=== PATIENT | male | born 1945 | race Caucasian/White ===

== ENCOUNTER 2017-10-05 15:22 | Inpatient (IN) | payer MEDICARE ==
[~2017-10-05] VITALS: Ht 175.3 cm; Wt 67.7 kg
[2017-10-05 15:24] VITALS: BP 125/87; PULSE 64; RESP 16; TEMP 98.3; O2SAT 96
[2017-10-05 16:37] LABS: AUTOMATED NEUTROPHIL # 5.2 TH/MM3 (1.8-7.7); BASOPHIL # 0.1 TH/MM3 (0-0.2); BASOPHIL % 1.1 % (0.0-2.0); EOSINOPHIL # 0.2 TH/MM3 (0-0.4); EOSINOPHIL % 3.2 % (0.0-4.0); HEMOGLOBIN 12.6 GM/DL (13.0-17.0); LYMPH % 18.8 % (9.0-44.0); LYMPHOCYTE # 1.4 TH/MM3 (1.0-4.8); MEAN CELL VOLUME 95.2 FL (80.0-100.0); MEAN CORPUSCULAR HEMOGLOBIN 31.6 PG (27.0-34.0); MEAN CORPUSCULAR HGB CONC 33.2 % (32.0-36.0); MEAN PLATELET VOLUME 7.9 FL (7.0-11.0); MONO % 5.4 % (0.0-8.0); MONOCYTE # 0.4 TH/MM3 (0-0.9); NEUT % 71.5 % (16.0-70.0); PLATELET COUNT 268 TH/MM3 (150-450); RED BLOOD COUNT 3.99 MIL/MM3 (4.50-5.90); RED CELL DISTRIBUTION WIDTH 15.6 % (11.6-17.2); WHITE BLOOD COUNT 7.3 TH/MM3 (4.0-11.0)
[2017-10-05 16:51] LABS: BICARBONATE 27.4 MEQ/L (21.0-32.0); CALCIUM 8.7 MG/DL (8.5-10.1); CREATININE 1.05 MG/DL (0.60-1.30); INTERNATIONAL NORMALIZED RATIO 1.3 RATIO; PROTHROMBIN TIME - PATIENT 13.4 SEC (9.8-11.6)
[2017-10-05 16:55] LABS: TROPONIN I 0.14 NG/ML (0.02-0.05)
[2017-10-05 16:57] VITALS: BP 193/102; PULSE 105; RESP 16; O2SAT 100
[2017-10-05] MEDS ORDERED: GUAI400T32 PO (17:13)
[2017-10-05] MEDS ORDERED: ZANT150T2 PO (17:13)
[2017-10-05] MEDS ORDERED: PERC5TAB12 PO (17:13)
[2017-10-05] MEDS ORDERED: SPIRCAP INH (17:13)
[2017-10-05] MEDS ORDERED: LEVO175T2 PO (17:13)
[2017-10-05] MEDS ORDERED: CLON.5 PO (17:13)
[2017-10-05] MEDS ORDERED: SYMB160A INH (17:13)
[2017-10-05] MEDS ORDERED: VENTAER INH (17:13)
[2017-10-05] MEDS ORDERED: MORP1TAB26 PO (17:13)
[2017-10-05] MEDS ORDERED: HEPARIN SODIUM - IV 10,000 UNITS/10 ML VIAL IV ONE (17:15)
[2017-10-05] MEDS ORDERED: POTASSIUM CHLORIDE 20 MEQ CONTROLLED RELEASE TAB PO ONE (17:15)
[2017-10-05] MEDS ORDERED: niCARdipine INJ 25 MG in SODIUM CHLOR 0.9% 250 ML INJ 240 ML IV PRN (17:15)
[2017-10-05] MEDS ORDERED: HEPARIN-D5W 25,000 U/250 ML 250 ML IV PRN (17:15)
[2017-10-05] MEDS ORDERED: methylPREDNISolone SOD SUCC 125 MG/2 ML VIAL IV PUSH ONE (17:15)
[2017-10-05] MEDS: RESP: ALBUTEROL 2.5 MG/3 ML NEB (SCH) INH ×2 (17:18→17:29)
--- NOTE | 2017-10-05 17:20 | RADRPT ---
EXAM DATE/TIME: 10/05/2017 16:32 [place] COMPARISON: No previous studies available for comparison. INDICATIONS : Vertigo, rapid heart rate, denies chest pain MEDICAL HISTORY : None. SURGICAL HISTORY : None. ENCOUNTER: Initial ACUITY: 1 day PAIN SCORE: 0/10 LOCATION: Bilateral chest FINDINGS: Mild diffuse interstitial prominence. No focal pleural or parenchymal opacities. Cardiac silhouette i s in the upper limits of normal in size. Bony thorax is intact. CONCLUSION: 1. Mild diffuse interstitial prominence of unknown chronicity given lack of prior exams. 2. Otherwise, no acute abnormality. Daniel Holliday MD on October 05, 2017 at 17:16 Board Certified Radiologist. This report was verified electronically.
--- NOTE | 2017-10-05 17:22 | PD ---
HPI Chief Complaint: Cardiac Complaint Time Seen by Provider: 16:37 Travel History International Travel<30 days: No Contact w/Intl Traveler<30days: No Traveled to known affect area: No History of Present Illness HPI 72-year-old male came to the emergency room with history of dizziness and balance issue since September 14. Patient denies any lightheadedness or syncopal episode. Denies falling. He [facility] and when they did an EKG they discovered that he was new onset A. fib and sent him to the emergency room. Patient has history of COPD and upon asking for shortness of breath he said that he usually has shortness of breath and cannot distinguish. Patient is not on any oxygen at home. His daughter who is here with him set that he was down for almost a month with influenza. Patient denies any chest pain history. There was blood tests ordered and sent from triage prior to patient coming into the emergency room. No history of fever or chills. Patient continues to be a smoker. Patient was tachycardic in triage. [facility] Past Medical History Narrative Medical List of his past medical, surgical, social and family history reviewed from the nursing note. Arthritis: Yes COPD: Yes Diminished Hearing: Yes (both ears ) Reproductive: Yes (BPH) Respiratory: Yes Thyroid Disease: Yes (hypo) Past Surgical History Tonsillectomy: Yes Social History Alcohol Use: No Tobacco Use: Yes (1/2 pack a day ) Substance Use: No Allergies-Medications (Allergen,Severity, Reaction): Coded Allergies: No Known Allergies (Unverified , 10/05/17) Comments No known drug allergies. Reported Meds & Prescriptions Reported Meds & Active Scripts Active Reported Percocet (Oxycodone-Acetaminophen) 5-325 mg Tab 2 Tab PO Q6H PRN Morphine ER (Morphine Sulfate) 60 Mg Tab 60 Mg PO BID Klonopin (Clonazepam) 0.5 Mg Tab 0.5 Mg PO TID Spiriva Handihaler (Tiotropium Inh) 18 Mcg Cap 18 Mcg INH DAILY 1 capsule = 18 mcg Zantac (Ranitidine HCl) 150 Mg Tab 150 Mg PO DAILY Levothyroxine (Levothyroxine Sodium) 175 Mcg Tab 175 Mcg PO DAILY Guaifenesin 400 Mg Tab 400 Mg PO BID PRN Symbicort Inh (Budesonide/Formoterol Fumarate) 160-4.5 Mcg/Act Aero 2 Puff INH Q12HR Ventolin Hfa 18 GM Inh (Albuterol Sulfate) 90 Mcg/Act Aer 2 Puff INH Q6H PRN Narrative Medication List of his home medications reviewed from the nursing note. Review of Systems Except as stated in HPI: all other systems reviewed are Neg Neurologic: Positive: Dizziness Physical Exam Narrative GENERAL: Awake, alert, moderate disc SKIN: Focused skin assessment warm/dry. Pale HEAD: Atraumatic. Normocephalic. EYES: Pupils equal and round. No scleral icterus. No injection or drainage. ENT: No nasal bleeding or discharge. Mucous membranes pink and moist. NECK: Trachea midline. No JVD. CARDIOVASCULAR: Irregularly irregular rhythm. No murmur appreciated. RESPIRATORY: No accessory muscle use. Decreased air entry with end expiratory wheeze GASTROINTESTINAL: Abdomen soft, non-tender, nondistended. Hepatic and splenic margins not palpable. MUSCULOSKELETAL: No obvious deformities. No clubbing. No cyanosis. No edema. NEUROLOGICAL: Awake and alert. No obvious cranial nerve deficits. Motor grossly within normal limits. Normal speech. PSYCHIATRIC: Appropriate mood and affect; insight and judgment normal. Data Data Last Documented VS Orders Orders Electrocardiogram (10/05/17 15:45) Basic Metabolic Panel (Bmp) (10/05/17 15:45) B-Type Natriuretic Peptide (10/05/17 15:45) Ckmb (Isoenzyme) Profile (10/05/17 15:45) Complete Blood Count With Diff (10/05/17 15:45) Magnesium (Mg) (10/05/17 15:45) Prothrombin Time / Inr (Pt) (10/05/17 15:45) Act Partial Throm Time (Ptt) (10/05/17 15:45) Troponin I (10/05/17 15:45) Chest, Pa & Lat (10/05/17 15:45) Potassium Chloride (Kcl) (10/05/17 17:15) Nicardipine Inj (Cardene Inj) (10/05/17 17:15) Heparin Inj (Heparin Inj) (10/05/17 17:15) Heparin-D5w 25,000 U/250 Ml (Heparin-D5w (10/05/17 17:15) Act Partial Throm Time (Ptt) (10/05/17 17:01) Cbc No Diff, Includes Plts (10/05/17 17:01) Methylprednisolone So Succ Inj (Solumedr (10/05/17 17:15) Albuterol Neb (Albuterol Neb) (10/05/17 17:15) Ecg Monitoring (10/05/17 17:22) Blood Pressure (10/05/17 17:22) Iv Access Insert/Monitor (10/05/17 17:22) Oximetry (10/05/17 17:22) Vital Signs (10/05/17 17:22) Diltiazem Inj (Cardizem Inj) (10/05/17 17:30) Sodium Chloride 0.9% Flush (Ns Flush) (10/05/17 17:30) Diltiazem Inj (Cardizem Inj) (10/05/17 17:45) Admit Order (Ed Use Only) (10/05/17 17:22) Labs Laboratory Tests Test 10/05/17 16:02 White Blood Count 7.3 TH/MM3 Red Blood Count 3.99 MIL/MM3 Hemoglobin 12.6 GM/DL Hematocrit 38.0 % Mean Corpuscular Volume 95.2 FL Mean Corpuscular Hemoglobin 31.6 PG Mean Corpuscular Hemoglobin Concent 33.2 % Red Cell Distribution Width 15.6 % Platelet Count 268 TH/MM3 Mean Platelet Volume 7.9 FL Neutrophils (%) (Auto) 71.5 % Lymphocytes (%) (Auto) 18.8 % Monocytes (%) (Auto) 5.4 % Eosinophils (%) (Auto) 3.2 % Basophils (%) (Auto) 1.1 % Neutrophils # (Auto) 5.2 TH/MM3 Lymphocytes # (Auto) 1.4 TH/MM3 Monocytes # (Auto) 0.4 TH/MM3 Eosinophils # (Auto) 0.2 TH/MM3 Basophils # (Auto) 0.1 TH/MM3 CBC Comment DIFF FINAL Differential Comment Prothrombin Time 13.4 SEC Prothromb Time International Ratio 1.3 RATIO Activated Partial Thromboplast Time 22.6 SEC Blood Urea Nitrogen 10 MG/DL Creatinine 1.05 MG/DL Random Glucose 84 MG/DL Calcium Level 8.7 MG/DL Magnesium Level 2.0 MG/DL Sodium Level 140 MEQ/L Potassium Level 3.1 MEQ/L Chloride Level 106 MEQ/L Carbon Dioxide Level 27.4 MEQ/L Anion Gap 7 MEQ/L Estimat Glomerular Filtration Rate 69 ML/MIN Total Creatine Kinase 91 U/L Troponin I 0.14 NG/ML B-Type Natriuretic Peptide 886 PG/ML MDM Medical Decision Making Medical Screen Exam Complete: Yes Emergency Medical Condition: Yes Medical Record Reviewed: Yes Interpretation(s) Twelve-lead EKG was reviewed by me. Atrial fibrillation, normal axis, RVR. Heart rate of 117 bpm. Differential Diagnosis CHF, COPD exacerbation, new onset A. fib with RVR Narrative Course 5:18 PM the test results are back and patient has slightly elevated troponin. Potassium was low and I have ordered for replacement. I started him on Cardizem bolus and drip and heparin bolus and drip. Patient will also be getting albuterol nebulizer. Awaiting for the hospitalist to call back for admission. I discussed this with the patient and he understands. Critical Care Narrative Aggregate critical care time was 30 minutes. Time to perform other separately billable procedures was not included in the critical care time. My time did not include minutes spent treating any other patients simultaneously or on activities that did not directly contribute to the patient's treatment. The services I provided to this patient were to treat and/or prevent clinically significant deterioration that could result in: A. fib with RVR, elevated troponin, Cardizem drip, heparin drip I provided critical care services requiring my management, as noted below: Chart data review, documentation time, medication orders and management, vital sign assessments/reviewing monitor data, ordering and reviewing lab tests, ordering and interpreting/reviewing x-rays and diagnostic studies, care of the patient and discussion of the patient with the admitting physicians. Procedures EKG Prior to Arrival: No Diagnosis Primary Impression: New onset a-fib Additional Impressions: Atrial fibrillation with RVR Elevated troponin I level Hypokalemia Admitting Information Admitting Physician Requests: Admit Scripts Ipratropium HFA 12.9 GM Inh (Atrovent HFA 12.9 GM Inh) 17 Mcg/Actuation Aer 2 PUFF INH Q6HR Y for SHORTNESS OF BREATH, #1 INHALER 0 Refills Prov: Antonio Covington MD 10/07/17 Apixaban (Eliquis) 5 Mg Tab 5 MG PO BID for Blood Clot Prevention for 30 Days, #60 TAB Prov: Antonio Covington MD 10/07/17 Diltiazem CD 24 HR (Diltiazem CD 24 HR) 240 Mg Caper 240 MG PO DAILY for heart for 30 Days, #30 CAP Prov: Antonio Covington MD 10/07/17 Seth Bear MD Oct 05, 2017 17:21
[2017-10-05] MEDS ORDERED: SODIUM CHLORIDE 0.9% FLUSH 10 ML FLUSH IV FLUSH PRN ×2 (17:30→18:00)
[2017-10-05] MEDS ORDERED: DILTIAZEM HCL 50 MG/10 ML VIAL IV PUSH ONE (17:45)
[2017-10-05] MEDS ORDERED: RESP: IPRATROPIUM 0.5 MG/2.5 ML NEB NEB PRN (18:00)
[2017-10-05] MEDS ORDERED: NALOXONE HCL 0.4 MG/ML AMP IV PUSH PRN (18:00)
[2017-10-05 18:53] VITALS: BP 160/89
[2017-10-05] MEDS ORDERED: DILTIAZEM HCL 25 MG/5 ML VIAL IV PUSH ONE (19:00)
[2017-10-05] MEDS: DILTIAZEM INJ 125 MG in SODIUM CHLORIDE 0.9% INJ 100 ML IV PRN (19:25)
[2017-10-05 20:00] VITALS: BP 126/73; PULSE 99; RESP 20; TEMP 98.5; O2SAT 98
[2017-10-05] MEDS ORDERED: CHLORHEXIDINE GLUCONATE 2 % 1 PACK (2 CLOTHS)(extra cloths) TOPICAL PRN (20:00)
[2017-10-05] MEDS: SODIUM CHLORIDE 0.9% FLUSH 10 ML FLUSH IV FLUSH SCH (21:00)
[2017-10-05 21:02] LABS: HEMATOCRIT 37.2 % (39.0-51.0); HEMOGLOBIN 12.3 GM/DL (13.0-17.0); MEAN CELL VOLUME 94.8 FL (80.0-100.0); MEAN CORPUSCULAR HEMOGLOBIN 31.4 PG (27.0-34.0); MEAN CORPUSCULAR HGB CONC 33.1 % (32.0-36.0); MEAN PLATELET VOLUME 8.3 FL (7.0-11.0); PLATELET COUNT 266 TH/MM3 (150-450); RED BLOOD COUNT 3.92 MIL/MM3 (4.50-5.90); RED CELL DISTRIBUTION WIDTH 15.6 % (11.6-17.2); WHITE BLOOD COUNT 8.9 TH/MM3 (4.0-11.0)
--- NOTE | 2017-10-05 21:42 | HHI.HP ---
HPI Service [facility] Hospitalists Primary Care Physician [facility] Admission Diagnosis Onset A. fib, A. fib with RVR, elevated troponin Diagnoses: Travel History International Travel<30 Days: No Contact w/Intl Traveler <30 Da: No Traveled to Known Affected Are: No History of Present Illness 72-year-old male with a past medical history significant for chronic left lower extremity pain secondary to trauma, COPD and hypothyroidism presents to the emergency department complaining of balance problems and lightheadedness since . The patient denies any chest pain or palpitations. Denies shortness of breath. Denies fever/chills. He went to the ID for evaluation where an EKG was performed and he was sent to the [place] emergency department. He was found to be in atrial fibrillation with RVR. The patient has no previous history of A. fib. Review of Systems Except as stated in HPI: all other systems reviewed are Neg Past Family Social History Past Medical History COPD Hypothyroidism Chronic left lower extremity pain secondary to trauma Past Surgical History Multiple surgeries left leg Reported Medications Reported Meds & Active Scripts Active Reported Percocet (Oxycodone-Acetaminophen) 5-325 mg Tab 2 Tab PO Q6H PRN Morphine ER (Morphine Sulfate) 60 Mg Tab 60 Mg PO BID Klonopin (Clonazepam) 0.5 Mg Tab 0.5 Mg PO TID Spiriva Handihaler (Tiotropium Inh) 18 Mcg Cap 18 Mcg INH DAILY 1 capsule = 18 mcg Zantac (Ranitidine HCl) 150 Mg Tab 150 Mg PO DAILY Levothyroxine (Levothyroxine Sodium) 175 Mcg Tab 175 Mcg PO DAILY Guaifenesin 400 Mg Tab 400 Mg PO BID PRN Symbicort Inh (Budesonide/Formoterol Fumarate) 160-4.5 Mcg/Act Aero 2 Puff INH Q12HR Ventolin Hfa 18 GM Inh (Albuterol Sulfate) 90 Mcg/Act Aer 2 Puff INH Q6H PRN Allergies: Coded Allergies: No Known Allergies (Unverified , 10/05/17) Family History Negative for CAD/DM Social History Smokes approximately one half a pack per day. Denies alcohol and illicit drugs. Physical Exam Vital Signs Vital Signs Date Time Temp Pulse Resp B/P (MAP) Pulse Ox O2 Delivery O2 Flow Rate FiO2 10/05/17 19:25 156 144/0 10/05/17 18:53 130 15 160/89 (112) 10/05/17 16:57 105 16 193/102 (132) 100 Nasal Cannula 2.00 10/05/17 16:53 119 23 100 2.00 10/05/17 15:24 98.3 64 16 125/87 (100) 96 Room Air Physical Exam GENERAL: male lying in bed SKIN: No rashes, ecchymoses or lesions. Cool and dry. HEAD: Atraumatic. Normocephalic. No temporal or scalp tenderness. EYES: Pupils equal round and reactive. Extraocular motions intact. No scleral icterus. No injection or drainage. ENT: Nose without bleeding, purulent drainage or septal hematoma. Throat without erythema, tonsillar hypertrophy or exudate. Uvula midline. Airway patent. NECK: Trachea midline. No JVD or lymphadenopathy. Supple, nontender, no meningeal signs. CARDIOVASCULAR: Tachycardic with irregularly irregular rhythm. No murmurs/rubs/ gallops RESPIRATORY: Bilateral expiratory wheezes GASTROINTESTINAL: Abdomen soft, non-tender, nondistended. No hepato-splenomegaly , or palpable masses. No guarding. MUSCULOSKELETAL: Extremities without clubbing, cyanosis, or edema. No joint tenderness, effusion, or edema noted. No calf tenderness. NEUROLOGICAL: Awake and alert. Cranial nerves II through XII intact. Motor and sensory grossly within normal limits. Normal speech. Laboratory Laboratory Tests Test 10/05/17 16:02 10/05/17 20:30 White Blood Count 7.3 8.9 Red Blood Count 3.99 3.92 Hemoglobin 12.6 12.3 Hematocrit 38.0 37.2 Mean Corpuscular Volume 95.2 94.8 Mean Corpuscular Hemoglobin 31.6 31.4 Mean Corpuscular Hemoglobin Concent 33.2 33.1 Red Cell Distribution Width 15.6 15.6 Platelet Count 268 266 Mean Platelet Volume 7.9 8.3 Neutrophils (%) (Auto) 71.5 Lymphocytes (%) (Auto) 18.8 Monocytes (%) (Auto) 5.4 Eosinophils (%) (Auto) 3.2 Basophils (%) (Auto) 1.1 Neutrophils # (Auto) 5.2 Lymphocytes # (Auto) 1.4 Monocytes # (Auto) 0.4 Eosinophils # (Auto) 0.2 Basophils # (Auto) 0.1 CBC Comment DIFF FINAL Differential Comment Prothrombin Time 13.4 Prothromb Time International Ratio 1.3 Activated Partial Thromboplast Time 22.6 78.8 Blood Urea Nitrogen 10 Creatinine 1.05 Random Glucose 84 Calcium Level 8.7 Magnesium Level 2.0 Sodium Level 140 Potassium Level 3.1 Chloride Level 106 Carbon Dioxide Level 27.4 Anion Gap 7 Estimat Glomerular Filtration Rate 69 Total Creatine Kinase 91 Troponin I 0.14 B-Type Natriuretic Peptide 886 Result Diagram: 10/05/17202910/05/17 1602 Caprini VTE Risk Assessment Caprini VTE Risk Assessment: Mod/High Risk (score >= 2) Caprini Risk Assessment Model Point Value = 1 Point Value = 2 Point Value = 3 Point Value = 5 Age 41-60 Minor surgery BMI > 25 kg/m2 Swollen legs Varicose veins or History of unexplained or recurrent spontaneous Oral contraceptives or hormone replacement Sepsis (< 1 month) Serious lung disease, including pneumonia (< 1 month) Abnormal pulmonary function Acute myocardial infarction Congestive heart failure (< 1 month) History of inflammatory bowel disease Medical patient at bed rest Age 61-74 Arthroscopic surgery Major open surgery (> 45 min) Laparoscopic surgery (> 45 min) Malignancy Confined to bed (> 72 hours) Immobilizing plaster cast Central venous access Age >= 75 History of VTE Family history of VTE Factor V Leiden Prothrombin [id number] Lupus anticoagulant Anticardiolipin antibodies Elevated serum homocysteine Heparin-induced thrombocytopenia Other congenital or acquired thrombophilia Stroke (< 1 month) Elective arthroplasty Hip, pelvis, or leg fracture Acute spinal cord injury (< 1 month) Prophylaxis Regimen Total Risk Factor Score Risk Level Prophylaxis Regimen 0-1 Low Early ambulation 2 Moderate Order ONE of the following: *Sequential Compression Device (SCD) *Heparin 5000 units SQ BID 3-4 Higher Order ONE of the following medications: *Heparin 5000 units SQ TID *Enoxaparin/Lovenox 40 mg SQ daily (WT < 150 kg, CrCl > 30 mL/min) *Enoxaparin/Lovenox 30 mg SQ daily (WT < 150 kg, CrCl > 10-29 mL/min) *Enoxaparin/Lovenox 30 mg SQ BID (WT < 150 kg, CrCl > 30 mL/min) AND/OR *Sequential Compression Device (SCD) 5 or more Highest Order ONE of the following medications: *Heparin 5000 units SQ TID (Preferred with Epidurals) *Enoxaparin/Lovenox 40 mg SQ daily (WT < 150 kg, CrCl > 30 mL/min) *Enoxaparin/Lovenox 30 mg SQ daily (WT < 150 kg, CrCl > 10-29 mL/min) *Enoxaparin/Lovenox 30 mg SQ BID (WT < 150 kg, CrCl > 30 mL/min) AND *Sequential Compression Device (SCD) Assessment and Plan Assessment and Plan Assessment/plan: 1. Atrial fibrillation with rapid ventricular response EKG significant for atrial fibrillation with rapid ventricular response, pulse 117, no ST segment elevations or depressions, personally reviewed Diltiazem drip Wean as tolerated Cardiology consulted, appreciate recommendations 2. Elevated troponin Troponin 0.14 EKG as above Likely secondary to atrial fibrillation ACS rule out pending; serial troponin/EKGs Heparin drip 3. COPD Ipratropium Continue home inhalers 4. Chronic pain Continue home Percocet and morphine 5. Hypothyroidism Continue home Synthroid FEN Heart healthy diet Electrolytes: Status post potassium supplementation, monitor BMP Heparin drip Physician Certification 2 Midnight Certification Type: Admission for Inpatient Services Order for Inpatient Services The services are ordered in accordance with Medicare regulations or non- Medicare payer requirements, as applicable. In the case of services not specified as inpatient-only, they are appropriately provided as inpatient services in accordance with the 2-midnight benchmark. Estimated LOS (days): 2 2 days is the estimated time the patient will need to remain in the hospital, assuming treatment plan goals are met and no additional complications. Post-Hospital Plan: Not yet determined Sarah Vee MD Oct 05, 2017 21:42
[2017-10-05] MEDS ORDERED: oxyCODONE/ACETAMINOPHEN 5 MG/325 MG TAB PO PRN (21:45)
[2017-10-05 21:49] VITALS: O2SAT 98
[2017-10-05] MEDS: RESP: IPRATROPIUM 0.5 MG/2.5 ML NEB NEB SCH (21:49)
[2017-10-05 22:00] VITALS: PULSE 84
[2017-10-05 22:13] LABS: TROPONIN I 0.14 NG/ML (0.02-0.05)
[2017-10-06] VITALS (13 sets, daily range): BP systolic 107–143; BP diastolic 54–78; PULSE 75–113; RESP 16–25; TEMP 97.8–99.3; O2SAT 92–98
[2017-10-06 03:05] LABS: AUTOMATED NEUTROPHIL # 5.1 TH/MM3 (1.8-7.7); BASOPHIL % 0.4 % (0.0-2.0); EOSINOPHIL % 0.1 % (0.0-4.0); HEMATOCRIT 36.4 % (39.0-51.0); HEMOGLOBIN 12.2 GM/DL (13.0-17.0); LYMPH % 6.3 % (9.0-44.0); LYMPHOCYTE # 0.3 TH/MM3 (1.0-4.8); MEAN CELL VOLUME 94.6 FL (80.0-100.0); MEAN CORPUSCULAR HEMOGLOBIN 31.8 PG (27.0-34.0); MEAN CORPUSCULAR HGB CONC 33.6 % (32.0-36.0); MEAN PLATELET VOLUME 7.7 FL (7.0-11.0); MONO % 0.7 % (0.0-8.0); NEUT % 92.5 % (16.0-70.0); PLATELET COUNT 257 TH/MM3 (150-450); RED BLOOD COUNT 3.85 MIL/MM3 (4.50-5.90); RED CELL DISTRIBUTION WIDTH 15.5 % (11.6-17.2); WHITE BLOOD COUNT 5.5 TH/MM3 (4.0-11.0)
[2017-10-06] MEDS: RESP: IPRATROPIUM 0.5 MG/2.5 ML NEB NEB SCH ×4 (03:24→20:16)
[2017-10-06 03:30] LABS: BICARBONATE 25.5 MEQ/L (21.0-32.0); CALCIUM 8.5 MG/DL (8.5-10.1); CREATININE 0.98 MG/DL (0.60-1.30)
[2017-10-06 03:34] LABS: TROPONIN I 0.11 NG/ML (0.02-0.05)
[2017-10-06] MEDS: CHLORHEXIDINE GLUCONATE 2 % 1 PACK (2 CLOTHS)(taper/protocol) TOPICAL SCH (03:49)
[2017-10-06] MEDS: LEVOTHYROXINE SODIUM 75 MCG TAB PO SCH (06:42)
[2017-10-06] MEDS: LEVOTHYROXINE SODIUM 100 MCG TAB PO SCH (06:42)
[2017-10-06] MEDS: clonazePAM 0.5 MG TAB PO SCH ×3 (08:06→17:13)
[2017-10-06] MEDS: DILTIAZEM INJ 125 MG in SODIUM CHLORIDE 0.9% INJ 100 ML IV PRN (08:06)
[2017-10-06] MEDS: SODIUM CHLORIDE 0.9% FLUSH 10 ML FLUSH IV FLUSH SCH ×2 (08:06→21:00)
--- NOTE | 2017-10-06 08:47 | PD.CONS ---
HPI Consult Requested By Primary Care Physician [facility] History of Present Illness 72-year-old male with past medical history of COPD, hypothyroidism, and chronic LLE pain. The patient has been having lightheadedness and balance problems for the past 3 weeks. [facility] and was found to be in A. fib with RVR to the ED. In the ED he was started on Cardizem and heparin drips. His heart rate is currently controlled on Cardizem drip. He has not had any chest pain or palpitations. Dyspnea with COPD is at baseline. He hasn't got out of bed yet to see if lightheadedness has improved. He denies any history of heart disease, CHF, or stroke/TIA. (Zeus Aggarwal) Review of Systems Negative except as stated in history of present illness (Zeus Aggarwal) Past Family Social History Allergies: Coded Allergies: No Known Allergies (Unverified , 10/05/17) Past Medical History COPD Hypothyroidism Chronic left lower extremity pain secondary to trauma Past Surgical History Multiple surgeries left leg Reported Medications Reported Meds & Active Scripts Active Reported Percocet (Oxycodone-Acetaminophen) 5-325 mg Tab 2 Tab PO Q6H PRN Morphine ER (Morphine Sulfate) 60 Mg Tab 60 Mg PO BID Klonopin (Clonazepam) 0.5 Mg Tab 0.5 Mg PO TID Spiriva Handihaler (Tiotropium Inh) 18 Mcg Cap 18 Mcg INH DAILY 1 capsule = 18 mcg Zantac (Ranitidine HCl) 150 Mg Tab 150 Mg PO DAILY Levothyroxine (Levothyroxine Sodium) 175 Mcg Tab 175 Mcg PO DAILY Guaifenesin 400 Mg Tab 400 Mg PO BID PRN Symbicort Inh (Budesonide/Formoterol Fumarate) 160-4.5 Mcg/Act Aero 2 Puff INH Q12HR Ventolin Hfa 18 GM Inh (Albuterol Sulfate) 90 Mcg/Act Aer 2 Puff INH Q6H PRN Active Ordered Medications Current Medications Medications (Trade) Dose Ordered Sig/Ulises Route Start Time Stop Time Status Last Admin Heparin Sodium/ Dextrose 250 ml @ 8 mls/hr TITRATE PRN IV 10/05/17 17:15 10/05/17 18:43 Diltiazem HCl 125 mg/Sodium Chloride 125 ml @ 5 mls/hr TITRATE PRN IV 10/05/17 17:30 10/06/17 08:06 (NS Flush) 2 ml UNSCH PRN IV FLUSH 10/05/17 18:00 (NS Flush) 2 ml BID IV FLUSH 10/05/17 21:00 10/06/17 08:06 (Narcan Inj) 0.4 mg UNSCH PRN IV PUSH 10/05/17 18:00 (Atrovent Neb) 0.5 mg Q6HR NEB NEB 10/05/17 22:00 10/06/17 03:24 (Atrovent Neb) 0.5 mg Q2HR NEB PRN NEB 10/05/17 18:00 Miscellaneous Information Patient in critical care unit? Ass... [id number] .XX 10/05/17 20:00 10/05/17 20:00 (Chlorhexidine 2% Cloth) 3 pack DAILY@04 TOPICAL 10/06/17 04:00 10/10/17 04:01 10/06/17 03:49 (Chlorhexidine 2% Cloth) 3 pack UNSCH PRN TOPICAL 10/05/17 20:00 10/10/17 19:55 (Symbicort 160-4.5 Mcg Inh) 2 puff Q12HR INH 10/06/17 09:00 (KlonoPIN) 0.5 mg TID PO 10/06/17 09:00 10/06/17 08:06 (Oramorph Sr) 60 mg BID PO 10/06/17 09:00 (Percocet 5-325 Mg) 2 tab Q6H PRN PO 10/05/17 21:45 (Spiriva Inh) 18 mcg DAILY INH 10/06/17 09:00 (Synthroid) 75 mcg DAILY@0600 PO 10/06/17 06:00 10/06/17 06:42 (Synthroid) 100 mcg DAILY@0600 PO 10/06/17 06:00 10/06/17 06:42 Family History Negative for CAD/DM Social History Smokes approximately one half a pack per day. Denies alcohol and illicit drugs. (Zeus Aggarwal) Physical Exam Vital Signs Vital Signs Date Time Temp Pulse Resp B/P (MAP) Pulse Ox O2 Delivery O2 Flow Rate FiO2 10/06/17 08:06 95 129/78 10/06/17 08:00 98.1 109 25 129/78 (95) 94 10/06/17 08:00 109 10/06/17 06:00 77 10/06/17 04:00 83 10/06/17 04:00 98.3 83 16 107/56 (73) 97 10/06/17 02:00 83 10/06/17 00:00 113 10/06/17 00:00 98.0 113 18 143/70 (94) 95 10/05/17 22:00 84 10/05/17 21:49 98 Nasal Cannula 2.00 10/05/17 20:00 99 10/05/17 20:00 98.5 99 20 126/73 (90) 98 10/05/17 19:25 156 144/0 10/05/17 18:53 130 15 160/89 (112) 10/05/17 16:57 105 16 193/102 (132) 100 Nasal Cannula 2.00 10/05/17 16:53 119 23 100 2.00 10/05/17 15:24 98.3 64 16 125/87 (100) 96 Room Air Physical Exam GENERAL: Well-developed well-nourished. In no acute distress. NECK: No carotid bruits. No JVD. CARDIOVASCULAR: Irregular controlled rate and irregular rhythm. No murmur appreciated. RESPIRATORY: No accessory muscle use. Clear to auscultation. Breath sounds equal bilaterally. MUSCULOSKELETAL: No clubbing or cyanosis. No edema. NEUROLOGICAL: Awake and alert. Normal speech. Laboratory Laboratory Tests Test 10/05/17 16:02 10/05/17 19:15 10/05/17 20:30 10/06/17 02:40 White Blood Count 7.3 8.9 5.5 Red Blood Count 3.99 3.92 3.85 Hemoglobin 12.6 12.3 12.2 Hematocrit 38.0 37.2 36.4 Mean Corpuscular Volume 95.2 94.8 94.6 Mean Corpuscular Hemoglobin 31.6 31.4 31.8 Mean Corpuscular Hemoglobin Concent 33.2 33.1 33.6 Red Cell Distribution Width 15.6 15.6 15.5 Platelet Count 268 266 257 Mean Platelet Volume 7.9 8.3 7.7 Neutrophils (%) (Auto) 71.5 92.5 Lymphocytes (%) (Auto) 18.8 6.3 Monocytes (%) (Auto) 5.4 0.7 Eosinophils (%) (Auto) 3.2 0.1 Basophils (%) (Auto) 1.1 0.4 Neutrophils # (Auto) 5.2 5.1 Lymphocytes # (Auto) 1.4 0.3 Monocytes # (Auto) 0.4 0.0 Eosinophils # (Auto) 0.2 0.0 Basophils # (Auto) 0.1 0.0 CBC Comment DIFF FINAL DIFF FINAL Differential Comment Prothrombin Time 13.4 Prothromb Time International Ratio 1.3 Activated Partial Thromboplast Time 22.6 78.8 29.9 Blood Urea Nitrogen 10 12 Creatinine 1.05 0.98 Random Glucose 84 176 Calcium Level 8.7 8.5 Magnesium Level 2.0 Sodium Level 140 142 Potassium Level 3.1 3.5 Chloride Level 106 108 Carbon Dioxide Level 27.4 25.5 Anion Gap 7 9 Estimat Glomerular Filtration Rate 69 75 Total Creatine Kinase 91 81 54 Troponin I 0.14 0.14 0.11 B-Type Natriuretic Peptide 886 Nasal Screen MRSA (PCR) MRSA NOT DETECTED (Zeus Aggarwal) Result Diagram: 10/06/17 0240 10/06/17 0240 Imaging Last Impressions Chest X-Ray 10/05/17 1545 Signed Impressions: Service Date/Time: Thursday, October 05, 2017 16:32 - CONCLUSION: 1. Mild diffuse interstitial prominence of unknown chronicity given lack of prior exams. 2. Otherwise, no acute abnormality. Daniel Holliday MD (Zeus Aggarwal) Assessment and Plan Assessment and Plan 72-year-old male with past medical history of COPD, hypothyroidism, and chronic LLE pain who presented complaining of lightheadedness and balance problems and was found to be in atrial fibrillation with RVR. Onset A. fib with RVR: Heart rate is currently controlled on Cardizem GTT. Currently on heparin gtt, Chadsvasc 1 for age. (Zeus Aggarwal) Assessment and Plan new onset afib wean cardizem gtt start PO cardizem start oral anticoagulant if HR controlled tomorrow, [facility] call with questions. will sign off (Brian Boyd MD) Zeus Aggarwal Oct 06, 2017 08:47 Brian Boyd MD Oct 06, 2017 13:48
[2017-10-06] MEDS ORDERED: NON-FORMULARY DRUG (Levothyroxine 175 MCG) PO SCH (09:00)
[2017-10-06] MEDS: MORPHINE SULFATE 60 MG CONTROLLED RELEASE TAB PO SCH ×2 (12:33→21:22)
--- NOTE | 2017-10-06 12:58 | EKG ---
Date Performed: 10/05/2017 Time Performed: 15:52:09 PTAGE: 72 years EKG: ATRIAL FIBRILLATION WITH RAPID VENTRICULAR RESPONSE ST DEVIATION AND MODERATE T-WAVE ABNORM ALITY, CONSIDER LATERAL ISCHEMIA ABNORMAL ECG NO PREVIOUS TRACING DOCTOR: Brian Boyd Interpretating Date/Time 10/06/2017 12:51:40
[2017-10-06] MEDS: BUDESONIDE-FORMOTEROL 160/4.5 MCG INHALER INH SCH ×2 (13:39→21:21)
[2017-10-06] MEDS: TIOTROPIUM BROMIDE 18 MCG INH INH SCH (14:30)
[2017-10-06] MEDS: DILTIAZEM-CD 240 MG CAP ER PO SCH (14:30)
--- NOTE | 2017-10-06 19:18 | HHI.PR ---
Subjective Remarks Patient seen today around 2:30 PM. He is feeling all right. Denies any chest pain or shortness of breath Objective Vital Signs Date Time Temp Pulse Resp B/P (MAP) Pulse Ox O2 Delivery O2 Flow Rate FiO2 10/06/17 18:00 92 10/06/17 16:00 97.8 75 25 108/66 (80) 98 10/06/17 16:00 75 10/06/17 15:07 92 102/57 10/06/17 14:00 104 10/06/17 12:00 98.8 82 19 114/54 (74) 98 10/06/17 12:00 82 10/06/17 10:00 101 10/06/17 09:12 92 Nasal Cannula 2.00 10/06/17 08:06 95 129/78 10/06/17 08:00 98.1 109 25 129/78 (95) 94 10/06/17 08:00 109 10/06/17 06:00 77 10/06/17 04:00 83 10/06/17 04:00 98.3 83 16 107/56 (73) 97 10/06/17 02:00 83 10/06/17 00:00 113 10/06/17 00:00 98.0 113 18 143/70 (94) 95 10/05/17 22:00 84 10/05/17 21:49 98 Nasal Cannula 2.00 10/05/17 20:00 99 10/05/17 20:00 98.5 99 20 126/73 (90) 98 10/05/17 19:25 156 144/0 I/O 10/05/17 10/05/17 10/05/17 10/06/17 10/06/17 10/06/17 07:00 15:00 23:00 07:00 15:00 23:00 Intake Total 240 ml 8 ml 960 ml Output Total 400 ml 325 ml Balance -160 ml 8 ml 635 ml Intake Oral 240 ml 960 ml IV Total 8 ml Output Urine Total 400 ml 325 ml # Voids 4 # Bowel Movements 0 Result Diagram: 10/06/17 0240 10/06/17 0240 Objective Remarks GENERAL: sittgin up in bed. NAD SKIN: Warm and dry. HEAD: Normocephalic. EYES: No scleral icterus. No injection or drainage. NECK: Supple, trachea midline. No JVD or lymphadenopathy. CARDIOVASCULAR: Tachycardic. Irregularly irregular rhythm without murmurs, gallops, or rubs. RESPIRATORY: Breath sounds equal bilaterally. No accessory muscle use. GASTROINTESTINAL: Abdomen soft, non-tender, nondistended. MUSCULOSKELETAL: No cyanosis, or edema. BACK: Nontender without obvious deformity. No CVA tenderness. A/P Assessment and Plan // Atrial fibrillation with rapid ventricular response EKG significant for atrial fibrillation with rapid ventricular response, pulse 117, no ST segment elevations or depressions, personally reviewed Diltiazem drip Wean as tolerated Cardiology consulted, appreciate recommendations = Appreciate cardiology assistance. No on by mouth Cardizem. If heart rate controlled tomorrow, plan discharge home. // Elevated troponin Troponin 0.14 EKG as above Likely secondary to atrial fibrillation ACS rule out pending; serial troponin/EKGs Heparin drip //COPD Ipratropium Continue home inhalers //Chronic pain Continue home Percocet and morphine // Hypothyroidism Continue home Synthroid -TSH 8.9, however would recommend rechecking this in several weeks she outpatient setting. FEN Heart healthy diet Electrolytes: Status post potassium supplementation, monitor BMP Heparin drip Discharge Planning If heart rate controlled by tomorrow, plan discharge home with home health. Antonio Covington MD Oct 06, 2017 19:18
--- NOTE | 2017-10-06 19:19 | HHI.FF ---
Face to Face Verification Diagnosis: (1) Generalized weakness (2) New onset a-fib (3) Atrial fibrillation with RVR Physical Therapy Order: Evaluate and Treat Home Health Nursing Order: CHF education Nursing assessment with vital signs Instructions: Home health nurse for medication management. [place] Order: To Evaluate: Support services I have seen patient Codey Gottlieb on 10/06/17. My clinical findings support the need for the requested home health care services because: Med compliance is questionable Limited ability to care for self I certify that my clinical findings support that this patient is homebound because: Unsafe to leave home unassisted Antonio Covington MD Oct 06, 2017 19:19
[2017-10-06] MEDS: APIXABAN 5 MG TABLET PO SCH (21:22)
[2017-10-07] VITALS (14 sets, daily range): BP systolic 103–139; BP diastolic 60–82; PULSE 62–130; RESP 11–18; TEMP 97.9–98.9; O2SAT 85–99
[2017-10-07] MEDS: CHLORHEXIDINE GLUCONATE 2 % 1 PACK (2 CLOTHS)(taper/protocol) TOPICAL SCH (04:00)
[2017-10-07] MEDS: RESP: IPRATROPIUM 0.5 MG/2.5 ML NEB NEB SCH ×4 (04:26→20:32)
[2017-10-07] MEDS: LEVOTHYROXINE SODIUM 75 MCG TAB PO SCH (06:06)
[2017-10-07] MEDS: LEVOTHYROXINE SODIUM 100 MCG TAB PO SCH (06:06)
[2017-10-07] MEDS ORDERED: DILT240C44 PO (08:55)
[2017-10-07] MEDS ORDERED: APIX5TAB PO (08:55)
[2017-10-07] MEDS ORDERED: IPRA17I INH (08:57)
[2017-10-07] MEDS: clonazePAM 0.5 MG TAB PO SCH ×3 (09:48→17:30)
[2017-10-07] MEDS: DILTIAZEM-CD 240 MG CAP ER PO SCH (09:48)
[2017-10-07] MEDS: APIXABAN 5 MG TABLET PO SCH ×2 (09:48→22:02)
[2017-10-07] MEDS: MORPHINE SULFATE 60 MG CONTROLLED RELEASE TAB PO SCH (09:49)
[2017-10-07] MEDS: BUDESONIDE-FORMOTEROL 160/4.5 MCG INHALER INH SCH ×2 (09:52→22:23)
[2017-10-07] MEDS: TIOTROPIUM BROMIDE 18 MCG INH INH SCH (09:53)
[2017-10-07] MEDS: SODIUM CHLORIDE 0.9% FLUSH 10 ML FLUSH IV FLUSH SCH ×2 (09:53→22:02)
--- NOTE | 2017-10-07 18:37 | HHI.PR ---
Subjective Remarks Patient seen this morning around 9 AM. Says he is feeling tired and lightheaded today. No focal weakness. Denies any chest pain or shortness of breath. Discussed with nurse. Canceled discharge. Nurse later reports that family says patient only takes one fourth of his sustained release morphine tablets, does not typically take prescribed dose. Objective Vital Signs Date Time Temp Pulse Resp B/P (MAP) Pulse Ox O2 Delivery O2 Flow Rate FiO2 10/07/17 18:00 130 10/07/17 16:00 79 10/07/17 16:00 98.3 79 11 105/67 (80) 99 10/07/17 14:00 93 10/07/17 13:11 22 10/07/17 12:00 98.6 97 15 108/64 (79) 94 10/07/17 12:00 97 10/07/17 10:13 98 Nasal Cannula 2.00 10/07/17 10:00 89 10/07/17 08:00 111 10/07/17 08:00 98.9 111 18 116/66 (83) 89 10/07/17 06:00 93 10/07/17 04:26 95 Nasal Cannula 2.00 10/07/17 04:00 98.4 62 17 117/82 (94) 99 10/07/17 04:00 62 10/07/17 02:00 94 10/07/17 00:00 98.5 94 15 103/69 (80) 98 10/07/17 00:00 94 10/06/17 22:00 104 10/06/17 20:00 107 10/06/17 20:00 99.3 107 18 124/70 (88) 96 I/O 10/06/17 10/06/17 10/06/17 10/07/17 10/07/17 10/07/17 07:00 15:00 23:00 07:00 15:00 23:00 Intake Total 240 ml 8 ml 960 ml 480 ml 180 ml Output Total 400 ml 325 ml 660 ml Balance -160 ml 8 ml 635 ml -180 ml 180 ml Intake Oral 240 ml 960 ml 480 ml 180 ml IV Total 8 ml Output Urine Total 400 ml 325 ml 660 ml # Voids 4 5 # Bowel Movements 0 0 0 Result Diagram: 10/06/17 0240 10/06/17 0240 Objective Remarks GENERAL: Patient sitting up in bed. Somnolent, wakes up for exam. SKIN: Warm and dry. HEAD: Normocephalic. EYES: No scleral icterus. No injection or drainage. NECK: Supple, trachea midline. No JVD. CARDIOVASCULAR: Heart rate in 90s. Irregularly irregular rhythm without murmurs , gallops, or rubs. RESPIRATORY: Breath sounds equal bilaterally. No accessory muscle use. GASTROINTESTINAL: Abdomen soft, non-tender, nondistended. MUSCULOSKELETAL: No cyanosis, or edema. BACK: Nontender without obvious deformity. No CVA tenderness. A/P Assessment and Plan // Atrial fibrillation with rapid ventricular response EKG significant for atrial fibrillation with rapid ventricular response, pulse 117, no ST segment elevations or depressions, personally reviewed Diltiazem drip Wean as tolerated Cardiology consulted, appreciate recommendations = Appreciate cardiology assistance. No on by mouth Cardizem. If heart rate controlled tomorrow, plan discharge home. = 2/8. Patient with hypotension, likely secondary to narcotics, as well as diltiazem. We'll load on digoxin. Plan for holding diltiazem. Hopefully off of narcotics, patient go home tomorrow if heart rate controlled. // Elevated troponin Troponin 0.14 EKG as above Likely secondary to atrial fibrillation ACS rule out pending; serial troponin/EKGs Heparin drip = Off heparin drip. Likely demand ischemia secondary to tachycardia //COPD Ipratropium Continue home inhalers //Chronic pain Continue home Percocet and morphine = 2/8. Patient somnolent, lightheaded. Low blood pressure. Family reports the patient takes only one fourth of his sustained release morphine (not supposed to split these tablets), has been getting prescribed dose here. Discontinue all narcotics. // Hypothyroidism Continue home Synthroid -TSH 8.9, however would recommend rechecking this in several weeks she outpatient setting. Discharge Planning Discharge held today due to hypotension, somnolence. Medications adjusted. If heart rate controlled by tomorrow, plan discharge home with home health. Antonio Covington MD Oct 07, 2017 18:37
[2017-10-07] MEDS ORDERED: DIGOXIN 0.5 MG/2 ML VIAL IVS STA (19:12)
[2017-10-08] VITALS (13 sets, daily range): BP systolic 117–156; BP diastolic 58–75; PULSE 70–114; RESP 7–32; TEMP 98–99.3; O2SAT 76–100
[2017-10-08] MEDS: DIGOXIN 0.5 MG/2 ML VIAL IVS SCH ×2 (01:26→05:42)
[2017-10-08] MEDS: RESP: IPRATROPIUM 0.5 MG/2.5 ML NEB NEB SCH ×4 (03:32→20:10)
[2017-10-08] MEDS: CHLORHEXIDINE GLUCONATE 2 % 1 PACK (2 CLOTHS)(taper/protocol) TOPICAL SCH (04:00)
[2017-10-08 05:26] LABS: AUTOMATED NEUTROPHIL # 6.5 TH/MM3 (1.8-7.7); BASOPHIL % 0.2 % (0.0-2.0); EOSINOPHIL % 0.6 % (0.0-4.0); HEMATOCRIT 38.1 % (39.0-51.0); HEMOGLOBIN 12.9 GM/DL (13.0-17.0); LYMPH % 8.4 % (9.0-44.0); LYMPHOCYTE # 0.7 TH/MM3 (1.0-4.8); MEAN CELL VOLUME 96.1 FL (80.0-100.0); MEAN CORPUSCULAR HEMOGLOBIN 32.7 PG (27.0-34.0); MEAN PLATELET VOLUME 8.3 FL (7.0-11.0); MONOCYTE # 0.6 TH/MM3 (0-0.9); NEUT % 82.8 % (16.0-70.0); PLATELET COUNT 231 TH/MM3 (150-450); RED BLOOD COUNT 3.96 MIL/MM3 (4.50-5.90); RED CELL DISTRIBUTION WIDTH 15.9 % (11.6-17.2); WHITE BLOOD COUNT 7.8 TH/MM3 (4.0-11.0)
[2017-10-08] MEDS: LEVOTHYROXINE SODIUM 100 MCG TAB PO SCH (05:42)
[2017-10-08] MEDS: LEVOTHYROXINE SODIUM 75 MCG TAB PO SCH (05:42)
[2017-10-08 06:10] LABS: ALBUMIN 3.2 GM/DL (3.4-5.0); BICARBONATE 25.8 MEQ/L (21.0-32.0); CALCIUM 8.6 MG/DL (8.5-10.1); CREATININE 1.26 MG/DL (0.60-1.30); MAGNESIUM 2.1 MG/DL (1.5-2.5); PHOSPHORUS 2.5 MG/DL (2.5-4.9)
[2017-10-08] MEDS ORDERED: ENALAPRILAT 1.25 MG/ML VIAL IV PUSH PRN (08:15)
[2017-10-08] MEDS: TIOTROPIUM BROMIDE 18 MCG INH INH SCH (08:26)
[2017-10-08] MEDS: clonazePAM 0.5 MG TAB PO SCH ×3 (08:26→18:26)
[2017-10-08] MEDS: SODIUM CHLORIDE 0.9% FLUSH 10 ML FLUSH IV FLUSH SCH ×2 (08:26→21:00)
[2017-10-08] MEDS: DIGOXIN 0.125 MG TAB PO SCH (08:26)
[2017-10-08] MEDS: BUDESONIDE-FORMOTEROL 160/4.5 MCG INHALER INH SCH ×2 (08:26→21:00)
[2017-10-08] MEDS: APIXABAN 5 MG TABLET PO SCH ×2 (08:26→21:00)
[2017-10-08] MEDS: POTASSIUM CHLOR 10 MEQ PREMIX 100 ML IV SCH ×3 (08:42→11:46)
[2017-10-08 08:54] LABS: BACTERIA, URINE MANY /hpf; BILIRUBIN, URINE NEG (NEG); BLOOD, URINE SMALL (NEG); GLUCOSE,URINE NEG (NEG); KETONE, URINE NEG (NEG); MUCUS URINE FEW /lpf (OCC); NITRITE,URINE POS (NEG); SQUAMOUS EPITHELIAL CELL URINE 2 /hpf (0-5); URINE COLOR YELLOW (YELLW/STRAW); URINE LEUKOCYTE ESTERASE LARGE (NEG); WHITE BLOOD CELL CLUMPS MANY
--- NOTE | 2017-10-08 10:46 | RADRPT ---
EXAM DATE/TIME: 10/08/2017 10:28 [facility] COMPARISON: No previous studies available for comparison. INDICATIONS : Altered mental status RADIATION DOSE: 38.14 CTDIvol (mGy) MEDICAL HISTORY : Chronic obstructive pulmonary disease. SURGICAL HISTORY : Tonsillectomy. ENCOUNTER: Initial ACUITY: 1 day PAIN SCALE: 0/10 LOCATION: cranial TECHNIQUE: Multiple contiguous axial images were obtained of the head. Using automated exposure control and adj ustment of the mA and/or kV according to patient size, radiation dose was kept as low as reasonably a chievable to obtain optimal diagnostic quality images. DICOM format image data is available electro nically for review and comparison. FINDINGS: CEREBRUM: The ventricles are normal for age. No evidence of midline shift, mass lesion, hemorrhage or acute in farction. No extra-axial fluid collections are seen. POSTERIOR FOSSA: The cerebellum and brainstem are intact. The 4th ventricle is midline. The cerebellopontine angle i s unremarkable. EXTRACRANIAL: The visualized portion of the orbits is intact. SKULL: The calvaria is intact. No evidence of skull fracture. CONCLUSION: No acute disease. Abran Mccain MD on October 08, 2017 at 10:43 Board Certified Radiologist. This report was verified electronically.
[2017-10-08] MEDS: POTASSIUM CHLORIDE INJ 20 MEQ in DEXT 5%-NACL 0.9% 1000 ML INJ 1,000 ML IV SCH ×2 (11:04→23:20)
--- NOTE | 2017-10-08 13:06 | MB ---
cc: JOE HAN M.D. DATE OF CONSULTATION 10/08/2017 DATE OF 1945 REASON FOR CONSULTATION Dysarthria, change in mental status. HISTORY OF PRESENT ILLNESS This is a 72-year-old man brought into the hospital on 10/05/2017 with a history of chronic left lower extremity pain, COPD, hypothyroidism, who has been having some balance issues and lightheadedness. He went to the OR for an EKG and was sent here and found to be in atrial fibrillation with RVR without any previous history. PAST MEDICAL HISTORY As stated. MEDICATIONS Home medicines are: 1. Percocet. 2. Morphine ER. 3. Klonopin. 4. Spiriva. 5. Zantac. 6. Synthroid. 7. Guaifenesin. 8. Symbicort. 9. Ventolin. ALLERGIES None reported. FAMILY HISTORY Noncontributory. SOCIAL HISTORY He smokes about a half pack a day. There is no reported alcohol or drugs. PHYSICAL EXAMINATION VITAL SIGNS: Temperature 98.7, heart rate 101, respiratory rate 25, satting 93% on 2 liters. NECK: Supple. No bruits. HEART: Irregularly irregular. NEUROLOGIC: He is awake and alert. He is able to tell me his name. Hard of hearing. He does have hearing aids. His pupils are reactive. Face is symmetrical. His speech is very hypophonic. His mouth is dry. He does have his dentures in. There is no facial asymmetry. Extraocular muscles are normal. Motor-vera he seems to move everything equally. He is actually asking for water. LABORATORY Hemoglobin 12.9, platelets 231,000. PTT on 10/06/2017 was 23.1. Potassium 3.3, BUN 23, creatinine 1.26, GFR 56, random glucose 124, albumin 3.2. TSH 8.960. Urine on 10/08/2017: Leukocyte esterase, wbc's innumerable. Urine culture is pending. IMAGING CT head: No acute pathology. IMPRESSION 1. A 72-year-old man with what looks like now a UTI. 2. I do not think he has dysarthria. I think he is just very dry. His change in mental status may be multifactorial from the atrial fibrillation. RECOMMENDATIONS Continue his diltiazem. He is on Eliquis now. Will get an EEG, start him on antibiotics for his UTI that may be contributing to his confusion. If his confusion does not improve, I would recommend at that point in time doing an MRI to look for any embolic events. Continue current care as outlined. MD MARILEE Bell/ARIC /11:50 AM /12:38 PM
--- NOTE | 2017-10-08 14:03 | PD.CONS ---
HPI Service Urology Consult Requested By Primary team Reason for Consult Voiding issues Primary Care Physician [facility] Diagnosis: History of Present Illness 72-year-old male with past medical history of COPD, hypothyroidism, and chronic LLE pain. The patient has been having lightheadedness and balance problems sor several weeks, was evaluated and found to have A fib with RVR. Started treatment and feels better today. Urology was consulted for voiding difficulties. Unable to communicate with pt due to his state of confusion, so all information was collected from nurses and other notes. Pt is unable to empty his bladder. He has condom catheter and last night PVR was >500cc, nurse was not able to cath him. He most likely has overflow incontinence and has about 300cc in the bag but bladder scan was performed and showed a full bladder. His Cr is normal. UA is suspicious for infection, needs UC Review of Systems Except as stated in HPI: all other systems reviewed are Neg Past Family Social History Past Medical History COPD Hypothyroidism Chronic left lower extremity pain secondary to trauma Past Surgical History Several leg surgeries Allergies: Coded Allergies: No Known Allergies (Unverified , 10/05/17) Family History N/A Social History He smokes about a half pack a day. There is no reported alcohol or drugs. Physical Exam Vital Signs Date Time Temp Pulse Resp B/P (MAP) Pulse Ox O2 Delivery O2 Flow Rate FiO2 10/08/17 12:00 98.1 101 10 147/75 (99) 99 10/08/17 12:00 101 10/08/17 10:00 101 10/08/17 08:19 Nasal Cannula 2.00 10/08/17 08:00 93 10/08/17 08:00 98.7 93 7 146/65 (92) 93 10/08/17 06:00 96 10/08/17 04:00 112 10/08/17 04:00 98.3 112 25 156/75 (102) 10/08/17 02:00 104 10/08/17 00:00 98.3 114 32 117/68 (84) 76 10/08/17 00:00 114 10/07/17 22:00 111 10/07/17 20:00 121 10/07/17 20:00 97.9 121 18 139/60 (86) 85 10/07/17 18:00 130 10/07/17 16:00 79 10/07/17 16:00 98.3 79 11 105/67 (80) 99 10/07/17 14:00 93 Physical Exam GENERAL: This is a well-nourished, well-developed patient, in no apparent distress. SKIN: No rashes, ecchymoses or lesions. Cool and dry. HEAD: Atraumatic. Normocephalic. No temporal or scalp tenderness. EYES: Pupils equal round and reactive. Extraocular motions intact. No scleral icterus. No injection or drainage. ENT: Nose without bleeding, purulent drainage or septal hematoma. Throat without erythema, tonsillar hypertrophy or exudate. Uvula midline. Airway patent. NECK: Trachea midline. No JVD or lymphadenopathy. Supple, nontender, no meningeal signs. CARDIOVASCULAR: Regular rate and rhythm without murmurs, gallops, or rubs. RESPIRATORY: Clear to auscultation. Breath sounds equal bilaterally. No wheezes , rales, or rhonchi. GASTROINTESTINAL: Abdomen soft, non-tender, nondistended. No hepato-splenomegaly , or palpable masses. No guarding. GENITOURINARY: Nornmal scrotal and testicular exam, no rash, no swelling no masses found. Normal phallus with condom cath attached. MUSCULOSKELETAL: Extremities without clubbing, cyanosis, or edema. No joint tenderness, effusion, or edema noted. No calf tenderness. Negative Homans sign bilaterally. NEUROLOGICAL: Awake and alert. Cranial nerves II through XII intact. Motor and sensory grossly within normal limits. Five out of 5 muscle strength in all muscle groups. Normal speech. Lab results reviewed: Yes Laboratory Tests Test 10/08/17 03:50 10/08/17 07:48 White Blood Count 7.8 Red Blood Count 3.96 Hemoglobin 12.9 Hematocrit 38.1 Mean Corpuscular Volume 96.1 Mean Corpuscular Hemoglobin 32.7 Mean Corpuscular Hemoglobin Concent 34.0 Red Cell Distribution Width 15.9 Platelet Count 231 Mean Platelet Volume 8.3 Neutrophils (%) (Auto) 82.8 Lymphocytes (%) (Auto) 8.4 Monocytes (%) (Auto) 8.0 Eosinophils (%) (Auto) 0.6 Basophils (%) (Auto) 0.2 Neutrophils # (Auto) 6.5 Lymphocytes # (Auto) 0.7 Monocytes # (Auto) 0.6 Eosinophils # (Auto) 0.0 Basophils # (Auto) 0.0 CBC Comment DIFF FINAL Differential Comment Blood Urea Nitrogen 23 Creatinine 1.26 Random Glucose 124 Albumin 3.2 Calcium Level 8.6 Phosphorus Level 2.5 Magnesium Level 2.1 Sodium Level 137 Potassium Level 3.3 Chloride Level 102 Carbon Dioxide Level 25.8 Anion Gap 9 Estimat Glomerular Filtration Rate 56 Urine Color YELLOW Urine Turbidity CLOUDY Urine pH 6.0 Urine Specific Kinney 1.014 Urine Protein 30 Urine Glucose (UA) NEG Urine Ketones NEG Urine Occult Blood SMALL Urine Nitrite POS Urine Bilirubin NEG Urine Urobilinogen LESS THAN 2.0 Urine Leukocyte Esterase LARGE Urine RBC 42 Urine WBC Urine WBC Clumps MANY Urine Squamous Epithelial Cells 2 Urine Bacteria MANY Urine Mucus FEW Microscopic Urinalysis Comment CATH-CULTURE IND Date/Time Source Procedure Growth Status 10/08/17 07:48 Urine Catheterized Urine Urine Culture Pending Received Result Diagram: 10/08/17 0350 10/08/17 0350 Imaging Last Impressions Head CT 10/08/17 0000 Signed Impressions: Service Date/Time: Sunday, October 08, 2017 10:28 - CONCLUSION: No acute disease. Abran Mccain MD Chest X-Ray 10/05/17 1545 Signed Impressions: Service Date/Time: Thursday, October 05, 2017 16:32 - CONCLUSION: 1. Mild diffuse interstitial prominence of unknown chronicity given lack of prior exams. 2. Otherwise, no acute abnormality. Daniel Holliday MD Assessment and Plan Problem List: (1) BPH w urinary obs/LUTS ICD Code: N40.1 - Benign prostatic hyperplasia with lower urinary tract symptoms; N13.8 - Other obstructive and reflux uropathy (2) Urinary retention due to benign prostatic hyperplasia ICD Code: N40.1 - Benign prostatic hyperplasia with lower urinary tract symptoms; R33.8 - Other retention of urine Assessment and Plan 72y.o. male with recently diagnosed A fib, currently confuses and has mental status changes, UA suspicious for infection He is also in urinary retention - Continue care as per primary team - Start Flomax 0.4mg qhs -Place 16fr coude liu catheter due to retention -Pt can be discharged with liu when ready to be d/c by primary team, he will need a f/u with urologist after d/c for voiding trial and further management of his BPH symptoms Discussed with Dr Dillon DEMARCO attending who also agrees with this plan Discussed Condition With pt's nurse All instructions provided Celestine Machado Oct 08, 2017 14:03
--- NOTE | 2017-10-08 17:55 | HHI.PR ---
Subjective Remarks Patient seen this morning. Very confused, disoriented, however can tell me he is in [facility]. Denies any chest pain. Bladder scan this morning 500, however uncertain if this was post void. Bladder scan later today 999 mL. Objective Vital Signs Date Time Temp Pulse Resp B/P (MAP) Pulse Ox O2 Delivery O2 Flow Rate FiO2 10/08/17 14:00 76 10/08/17 12:00 98.1 101 10 147/75 (99) 99 10/08/17 12:00 101 10/08/17 10:00 101 10/08/17 08:19 Nasal Cannula 2.00 10/08/17 08:00 93 10/08/17 08:00 98.7 93 7 146/65 (92) 93 10/08/17 06:00 96 10/08/17 04:00 112 10/08/17 04:00 98.3 112 25 156/75 (102) 10/08/17 02:00 104 10/08/17 00:00 98.3 114 32 117/68 (84) 76 10/08/17 00:00 114 10/07/17 22:00 111 10/07/17 20:00 121 10/07/17 20:00 97.9 121 18 139/60 (86) 85 10/07/17 18:00 130 I/O 10/07/17 10/07/17 10/07/17 10/08/17 10/08/17 10/08/17 07:00 15:00 23:00 07:00 15:00 23:00 Intake Total 480 ml 180 ml 60 ml 300 ml Output Total 660 ml 250 ml Balance -180 ml 180 ml -190 ml 300 ml Intake Oral 480 ml 180 ml 60 ml IV Total 300 ml Output Urine Total 660 ml 250 ml Stool Total 0 ml # Voids 5 # Bowel Movements 0 0 Result Diagram: 10/08/17 0350 10/08/17 0350 Objective Remarks GENERAL: Patient sitting up in bed. patient somnolent, wakes up for exam. Appears to have dysarthria today, however he does have lower dentures out today. Strength equal bilateral upper and lower extremity is. SKIN: Warm and dry. HEAD: Normocephalic. EYES: No scleral icterus. No injection or drainage. NECK: Supple, trachea midline. No JVD. CARDIOVASCULAR: Heart rate in 90s again. Irregularly irregular rhythm without murmurs, gallops, or rubs. RESPIRATORY: Breath sounds equal bilaterally. No accessory muscle use. GASTROINTESTINAL: Abdomen soft, non-tender, nondistended. MUSCULOSKELETAL: No cyanosis, or edema. BACK: Nontender without obvious deformity. No CVA tenderness. A/P Assessment and Plan // Atrial fibrillation with rapid ventricular response EKG significant for atrial fibrillation with rapid ventricular response, pulse 117, no ST segment elevations or depressions, personally reviewed Diltiazem drip Wean as tolerated Cardiology consulted, appreciate recommendations = Appreciate cardiology assistance. No on by mouth Cardizem. If heart rate controlled tomorrow, plan discharge home. = 10/07. Patient with hypotension, likely secondary to narcotics, as well as diltiazem. We'll load on digoxin. Plan for holding diltiazem. Hopefully off of narcotics, patient go home tomorrow if heart rate controlled. = 10/08. Rate stable this morning. Slightly elevated this afternoon. We'll start metoprolol twice daily in addition to digoxin. Blood pressure improved. //Patient confusion, what appears to be dysarthria this morning. 10/08 = Neurology feels that dysarthria is simply from dry mouth, and this could be the case, however patient is confused. CT head no acute findings. No other focal findings Consult neurology = Could be hospital-induced delirium -Patient does have a UTI on urinalysis. Check ammonia. Check BNP. Check ABG. Neurology following. Appreciate assistance. //Urinary retention. On 10/08. Postvoid residual 999 mL. Unable to pass catheter. Urology consulted // Elevated troponin Troponin 0.14 EKG as above Likely secondary to atrial fibrillation ACS rule out pending; serial troponin/EKGs Heparin drip = Off heparin drip. Likely demand ischemia secondary to tachycardia //COPD Ipratropium Continue home inhalers //Chronic pain Continue home Percocet and morphine = 10/07. Patient somnolent, lightheaded. Low blood pressure. Family reports the patient takes only one fourth of his sustained release morphine (not supposed to split these tablets), has been getting prescribed dose here. Discontinue all narcotics. = Continue to hold all narcotics. //Hypokalemia. Continue to monitor and replace as necessary. // Hypothyroidism Continue home Synthroid -TSH 8.9, however would recommend rechecking this in several weeks she outpatient setting. Discharge Planning patient with delirium, UTI = Continuing to work on heart rate control. Antonio Covington MD Oct 08, 2017 17:55
[2017-10-08] MEDS ORDERED: METOPROLOL TARTRATE 25 MG TAB PO ONE (18:00)
[2017-10-08] MEDS: cefTRIAXone INJ 1,000 MG in SODIUM CHLORIDE 0.9% INJ 100 ML IV SCH (18:21)
[2017-10-08] MEDS ORDERED: MIDAZOLAM HCL 5 MG/ML VIAL (1 ML) ONE (18:56)
[2017-10-08] MEDS ORDERED: MIDAZOLAM HCL 2 MG/2 ML VIAL IV ONE (19:30)
--- NOTE | 2017-10-08 20:29 | HHI.PR ---
Subjective Patient symptoms today Called to place liu catheter after unsuccessful attempt by staff. Bladder scan with 900cc per report. Objective Vital Signs Vital Signs Date Time Temp Pulse Resp B/P (MAP) Pulse Ox O2 Delivery O2 Flow Rate FiO2 10/08/17 20:12 100 Nasal Cannula 4.00 10/08/17 18:00 111 10/08/17 16:00 99.3 104 12 135/61 (85) 97 10/08/17 16:00 104 10/08/17 14:00 76 10/08/17 12:00 98.1 101 10 147/75 (99) 99 10/08/17 12:00 101 10/08/17 10:00 101 10/08/17 08:19 Nasal Cannula 2.00 10/08/17 08:00 93 10/08/17 08:00 98.7 93 7 146/65 (92) 93 10/08/17 06:00 96 10/08/17 04:00 112 10/08/17 04:00 98.3 112 25 156/75 (102) 10/08/17 02:00 104 10/08/17 00:00 98.3 114 32 117/68 (84) 76 10/08/17 00:00 114 10/07/17 22:00 111 Intake & Output 10/09/17 10/09/17 07:00 19:00 Intake Total 100 ml Balance 100 ml IV Total 100 ml Result Diagram: 10/08/17 0350 10/08/17 0350 Imaging Last [address] 10/08/17 0000 Signed Impressions: Service Date/Time: Sunday, October 08, 2017 10:28 - CONCLUSION: No acute disease. Abran Mccain MD Objective Remarks Abd:soft,nt,? bladder full, LIH present Meatal stenosis noted Medications and IVs Current Medications Medications (Trade) Dose Ordered Sig/Ulises Route Start Time Stop Time Status Last Admin (NS Flush) 2 ml UNSCH PRN IV FLUSH 10/05/17 18:00 (NS Flush) 2 ml BID IV FLUSH 10/05/17 21:00 10/08/17 08:26 (Narcan Inj) 0.4 mg UNSCH PRN IV PUSH 10/05/17 18:00 (Atrovent Neb) 0.5 mg Q6HR NEB NEB 10/05/17 22:00 10/08/17 20:10 (Atrovent Neb) 0.5 mg Q2HR NEB PRN NEB 10/05/17 18:00 Miscellaneous Information Patient in critical care unit? Ass... Q361D .XX 10/05/17 20:00 10/05/17 20:00 (Chlorhexidine 2% Cloth) 3 pack DAILY@04 TOPICAL 10/06/17 04:00 10/10/17 04:01 10/08/17 04:00 (Chlorhexidine 2% Cloth) 3 pack UNSCH PRN TOPICAL 10/05/17 20:00 10/10/17 19:55 (Symbicort 160-4.5 Mcg Inh) 2 puff Q12HR INH 10/06/17 09:00 10/08/17 08:26 (KlonoPIN) 0.5 mg TID PO 10/06/17 09:00 10/08/17 18:26 (Spiriva Inh) 18 mcg DAILY INH 10/06/17 09:00 10/08/17 08:26 (Synthroid) 75 mcg DAILY@0600 PO 10/06/17 06:00 10/08/17 05:42 (Synthroid) 100 mcg DAILY@0600 PO 10/06/17 06:00 10/08/17 05:42 (Cardizem Cd) 240 mg DAILY PO 10/06/17 14:00 Future Hold 10/07/17 09:48 (Eliquis) 5 mg BID PO 10/06/17 21:00 10/08/17 08:26 (Lanoxin) 0.125 mg DAILY PO 10/08/17 09:00 10/08/17 08:26 Potassium Chloride 20 meq/ Dextrose/Sodium Chloride 1,010 ml @ 84 mls/hr Q12H2M IV 10/08/17 09:00 10/08/17 11:04 (Vasotec Inj) 1.25 mg Q4H PRN IV PUSH 10/08/17 08:15 Ceftriaxone Sodium 1000 mg/ Sodium Chloride 100 ml @ 200 mls/hr Q24H IV 10/08/17 18:00 10/08/17 18:21 (Lopressor) 25 mg Q12HR PO 10/08/17 21:00 Assessment and Plan Problem List: (1) BPH w urinary obs/LUTS ICD Code: N40.1 - Benign prostatic hyperplasia with lower urinary tract symptoms; N13.8 - Other obstructive and reflux uropathy (2) Urinary retention due to benign prostatic hyperplasia ICD Code: N40.1 - Benign prostatic hyperplasia with lower urinary tract symptoms; R33.8 - Other retention of urine Assessment and Plan 72y.o. male with recently diagnosed A fib, currently confuses and has mental status changes, UA suspicious for infection He is also in urinary retention - Continue care as per primary team - Start Flomax 0.4mg qhs -Place 16fr coude liu catheter due to retention -Pt can be discharged with liu when ready to be d/c by primary team, he will need a f/u with urologist after d/c for voiding trial and further management of his BPH symptoms Discussed with Dr Dillon DEMARCO attending who also agrees with this plan 10/08 72 y.o male with meatal stenosis and AUR with probable UTI Urethral sounds used to dilate meatus Bard kit used to dilate over wire 14 F coude with 20cc H2O in balloon Leave liu in 7-10 days Brandon Johnson DO Oct 08, 2017 20:29
[2017-10-08 20:36] LABS: ALBUMIN 2.8 GM/DL (3.4-5.0); DIRECT BILIRUBIN ADULT 0.4 MG/DL (0.0-0.2)
[2017-10-08 20:37] LABS: INDIRECT BILIRUBIN 0.6 MG/DL (0.0-0.8); TOTAL PROTEIN 6.2 GM/DL (6.4-8.2)
[2017-10-08] MEDS: METOPROLOL TARTRATE 25 MG TAB PO SCH (21:00)
--- NOTE | 2017-10-08 21:30 | MG ---
cc: JOE HAN M.D. Lab No: [id number] Date: Age: 73 Sex: M Race: REFERRING: Dr. Covington. ROOM: 505B. With photic stimulation only. Awake, drowsy asleep study. Confused. Nothing acute noted. 72-year-old man with new onset atrial fibrillation with rapid ventricular response with history of hypothyroidism on Lanoxin, Eliquis, Klonopin, Synthroid. DESCRIPTION OF THE RECORD: The patient has a background of 4-5 Hz consistent with a theta frequency. EKG looks like he is in atrial fibrillation. There is no P wave. It is irregular. The patient is moving quite a bit in the recording. He is asked to relax. Quite a bit of artifact but overall theta slowing seen. On photic stimulation there is a mild driving response. IMPRESSION: Abnormal EEG due to mild slowing consistent with encephalopathic process without any epileptiform features in this one recording. Clinical correlation. MD MARILEE Bell/ANA PAULA /7:48 PM /9:09 PM
[2017-10-09] VITALS (21 sets, daily range): BP systolic 110–132; BP diastolic 55–71; PULSE 63–101; RESP 16–28; TEMP 97.5–100.9; O2SAT 90–100
[2017-10-09] MEDS: CHLORHEXIDINE GLUCONATE 2 % 1 PACK (2 CLOTHS)(taper/protocol) TOPICAL SCH (04:00)
[2017-10-09] MEDS: RESP: IPRATROPIUM 0.5 MG/2.5 ML NEB NEB SCH ×4 (04:41→21:05)
[2017-10-09] MEDS: LEVOTHYROXINE SODIUM 100 MCG TAB PO SCH (05:28)
[2017-10-09] MEDS: LEVOTHYROXINE SODIUM 75 MCG TAB PO SCH (05:28)
[2017-10-09 05:59] LABS: AUTOMATED NEUTROPHIL # 6.2 TH/MM3 (1.8-7.7); BASOPHIL % 0.2 % (0.0-2.0); EOSINOPHIL # 0.1 TH/MM3 (0-0.4); EOSINOPHIL % 0.7 % (0.0-4.0); HEMATOCRIT 35.5 % (39.0-51.0); HEMOGLOBIN 11.9 GM/DL (13.0-17.0); LYMPH % 5.6 % (9.0-44.0); LYMPHOCYTE # 0.4 TH/MM3 (1.0-4.8); MEAN CELL VOLUME 95.4 FL (80.0-100.0); MEAN CORPUSCULAR HEMOGLOBIN 31.9 PG (27.0-34.0); MEAN CORPUSCULAR HGB CONC 33.4 % (32.0-36.0); MEAN PLATELET VOLUME 8.3 FL (7.0-11.0); MONO % 8.8 % (0.0-8.0); MONOCYTE # 0.6 TH/MM3 (0-0.9); NEUT % 84.7 % (16.0-70.0); PLATELET COUNT 186 TH/MM3 (150-450); RED BLOOD COUNT 3.72 MIL/MM3 (4.50-5.90); RED CELL DISTRIBUTION WIDTH 15.6 % (11.6-17.2); WHITE BLOOD COUNT 7.4 TH/MM3 (4.0-11.0)
[2017-10-09 06:35] LABS: ALBUMIN 2.5 GM/DL (3.4-5.0); BICARBONATE 23.3 MEQ/L (21.0-32.0); CALCIUM 8.3 MG/DL (8.5-10.1); CREATININE 1.17 MG/DL (0.60-1.30); PHOSPHORUS 2.2 MG/DL (2.5-4.9)
[2017-10-09] MEDS: BUDESONIDE-FORMOTEROL 160/4.5 MCG INHALER INH SCH ×2 (09:00→20:58)
[2017-10-09] MEDS: TIOTROPIUM BROMIDE 18 MCG INH INH SCH (09:00)
[2017-10-09] MEDS: SODIUM CHLORIDE 0.9% FLUSH 10 ML FLUSH IV FLUSH SCH ×2 (09:00→20:57)
--- NOTE | 2017-10-09 09:30 | HHI.PR ---
Subjective Remarks This is a pleasant 72 y/o male with COPD, Hypothyroidism, chronic LLE pain, who has been with lightheadedness and balance difficulties for several weeks, found in Atrial Fibrillation with RVR, feeling better, Urology yesterday had to place a Myers cath recommended to be discharged on Flomax and Myers cath and follow as outpatient, Seen by Cardiology recommended NOAC and at this time on Beta Blockers with controlled rate. Neurology did not think he has Dysarthria. at this time seen in his bedroom in the presence of nurse Miss Gotti patient improved his Diarrhea, but had some agitation and the need for restraints, at this time no Hypoxemia, no electrolyte derangement and patient alert, awake and oriented. Objective Vital Signs Date Time Temp Pulse Resp B/P (MAP) Pulse Ox O2 Delivery O2 Flow Rate FiO2 10/09/17 08:24 100 Nasal Cannula 2.00 10/09/17 06:00 89 10/09/17 04:44 97 Nasal Cannula 4.00 10/09/17 04:00 100.6 99 28 124/71 (88) 90 10/09/17 04:00 99 10/09/17 02:00 80 10/09/17 00:00 76 10/09/17 00:00 100.9 76 18 132/62 (85) 100 10/08/17 22:00 70 10/08/17 20:12 100 Nasal Cannula 4.00 10/08/17 20:00 98.0 86 14 121/58 (79) 100 10/08/17 20:00 86 10/08/17 18:00 111 10/08/17 16:00 99.3 104 12 135/61 (85) 97 10/08/17 16:00 104 10/08/17 14:00 76 10/08/17 12:00 98.1 101 10 147/75 (99) 99 10/08/17 12:00 101 10/08/17 10:00 101 I/O 10/08/17 10/08/17 10/08/17 10/09/17 10/09/17 10/09/17 07:00 15:00 23:00 07:00 15:00 23:00 Intake Total 60 ml 300 ml 340 ml 1010 ml Output Total 250 ml 1450 ml 750 ml Balance -190 ml 300 ml -1110 ml 260 ml Intake Oral 60 ml 240 ml IV Total 300 ml 100 ml 1010 ml Output Urine Total 250 ml 1450 ml 750 ml Stool Total 0 ml 0 ml 0 ml Bladder Scan Volume Amount 999 ml Result Diagram: 10/09/17 0408 10/09/17 0408 Imaging Last Impressions Head CT 10/08/17 0000 Signed Impressions: Service Date/Time: Sunday, October 08, 2017 10:28 - CONCLUSION: No acute disease. Abran Mccain MD Chest X-Ray 10/05/17 1545 Signed Impressions: Service Date/Time: Thursday, October 05, 2017 16:32 - CONCLUSION: 1. Mild diffuse interstitial prominence of unknown chronicity given lack of prior exams. 2. Otherwise, no acute abnormality. Daniel Holliday MD Procedures None Other Results Laboratory Tests Test 10/05/17 16:02 10/05/17 19:15 10/06/17 02:40 10/06/17 17:30 Prothrombin Time 13.4 SEC Prothromb Time International Ratio 1.3 RATIO Nasal Screen MRSA (PCR) MRSA NOT DETECTED Total Creatine Kinase 54 U/L Troponin I 0.11 NG/ML Thyroid Stimulating Hormone 3rd Gen 8.960 uIU/ML Activated Partial Thromboplast Time 23.1 SEC Test 10/08/17 07:48 10/08/17 17:48 10/08/17 20:03 10/09/17 04:08 Urine Color YELLOW Urine Turbidity CLOUDY Urine pH 6.0 Urine Specific [place] 1.014 Urine Protein 30 mg/dL Urine Glucose (UA) NEG mg/dL Urine Ketones NEG mg/dL Urine Occult Blood SMALL Urine Nitrite POS Urine Bilirubin NEG Urine Urobilinogen LESS THAN 2.0 MG/DL Urine Leukocyte Esterase LARGE Urine RBC 42 /hpf Urine WBC /hpf Urine WBC Clumps MANY Urine Squamous Epithelial Cells 2 /hpf Urine Bacteria MANY /hpf Urine Mucus FEW /lpf Microscopic Urinalysis Comment CATH-CULTURE IND Blood Gas Puncture Site RT RADIAL Blood Gas Patient Temperature 98.6 Blood Gas HCO3 23 mmol/L Blood Gas Base Excess -0.9 mmol/L Blood Gas Oxygen Saturation 93 % Arterial Blood pH 7.41 Arterial Blood Partial Pressure CO2 38 mmHg Arterial Blood Partial Pressure O2 77 mmHg Arterial Blood Oxygen Content 15.2 Vol % Arterial Blood Carboxyhemoglobin 1.7 % Arterial Blood Methemoglobin 1.3 % Blood Gas Hemoglobin 11.7 G/DL Oxygen Delivery Device NASAL CANNULA Blood Gas Liter Flow 3 L/M Total Bilirubin 1.0 MG/DL Direct Bilirubin 0.4 MG/DL Indirect Bilirubin 0.6 MG/DL Aspartate Amino Transf (AST/SGOT) 12 U/L Alanine Aminotransferase (ALT/SGPT) 9 U/L Alkaline Phosphatase 81 U/L Ammonia LESS THAN 10 MCMOL/L B-Type Natriuretic Peptide 501 PG/ML Total Protein 6.2 GM/DL White Blood Count 7.4 TH/MM3 Red Blood Count 3.72 MIL/MM3 Hemoglobin 11.9 GM/DL Hematocrit 35.5 % Mean Corpuscular Volume 95.4 FL Mean Corpuscular Hemoglobin 31.9 PG Mean Corpuscular Hemoglobin Concent 33.4 % Red Cell Distribution Width 15.6 % Platelet Count 186 TH/MM3 Mean Platelet Volume 8.3 FL Neutrophils (%) (Auto) 84.7 % Lymphocytes (%) (Auto) 5.6 % Monocytes (%) (Auto) 8.8 % Eosinophils (%) (Auto) 0.7 % Basophils (%) (Auto) 0.2 % Neutrophils # (Auto) 6.2 TH/MM3 Lymphocytes # (Auto) 0.4 TH/MM3 Monocytes # (Auto) 0.6 TH/MM3 Eosinophils # (Auto) 0.1 TH/MM3 Basophils # (Auto) 0.0 TH/MM3 CBC Comment DIFF FINAL Differential Comment Blood Urea Nitrogen 20 MG/DL Creatinine 1.17 MG/DL Random Glucose 142 MG/DL Albumin 2.5 GM/DL Calcium Level 8.3 MG/DL Phosphorus Level 2.2 MG/DL Magnesium Level 2.0 MG/DL Sodium Level 140 MEQ/L Potassium Level 3.9 MEQ/L Chloride Level 108 MEQ/L Carbon Dioxide Level 23.3 MEQ/L Anion Gap 9 MEQ/L Estimat Glomerular Filtration Rate 61 ML/MIN Objective Remarks GENERAL: Patient sitting up in bed. patient somnolent, wakes up for exam. Appears to have dysarthria today, however he does have lower dentures out today. Strength equal bilateral upper and lower extremity is. SKIN: Warm and dry. HEAD: Normocephalic. EYES: No scleral icterus. No injection or drainage. NECK: Supple, trachea midline. No JVD. CARDIOVASCULAR: Heart rate in 90s again. Irregularly irregular rhythm without murmurs, gallops, or rubs. RESPIRATORY: Breath sounds equal bilaterally. No accessory muscle use. GASTROINTESTINAL: Abdomen soft, non-tender, nondistended. MUSCULOSKELETAL: No cyanosis, or edema. BACK: Nontender without obvious deformity. No CVA tenderness. Medications and IVs Current Medications Medications (Trade) Dose Ordered Sig/Ulises Route Start Time Stop Time Status Last Admin (NS Flush) 2 ml UNSCH PRN IV FLUSH 10/05/17 18:00 (NS Flush) 2 ml BID IV FLUSH 10/05/17 21:00 10/08/17 21:00 (Narcan Inj) 0.4 mg UNSCH PRN IV PUSH 10/05/17 18:00 (Atrovent Neb) 0.5 mg Q6HR NEB NEB 10/05/17 22:00 10/09/17 08:23 (Atrovent Neb) 0.5 mg Q2HR NEB PRN NEB 10/05/17 18:00 Miscellaneous Information Patient in critical care unit? Ass... Q361D .XX 10/05/17 20:00 10/05/17 20:00 (Chlorhexidine 2% Cloth) 3 pack DAILY@04 TOPICAL 10/06/17 04:00 10/10/17 04:01 10/09/17 04:00 (Chlorhexidine 2% Cloth) 3 pack UNSCH PRN TOPICAL 10/05/17 20:00 10/10/17 19:55 (Symbicort 160-4.5 Mcg Inh) 2 puff Q12HR INH 10/06/17 09:00 10/08/17 08:26 (KlonoPIN) 0.5 mg TID PO 10/06/17 09:00 10/08/17 18:26 (Spiriva Inh) 18 mcg DAILY INH 10/06/17 09:00 10/08/17 08:26 (Synthroid) 75 mcg DAILY@0600 PO 10/06/17 06:00 10/08/17 05:42 (Synthroid) 100 mcg DAILY@0600 PO 10/06/17 06:00 10/08/17 05:42 (Cardizem Cd) 240 mg DAILY PO 10/06/17 14:00 Future Hold 10/07/17 09:48 (Eliquis) 5 mg BID PO 10/06/17 21:00 2/9/18 08:26 (Lanoxin) 0.125 mg DAILY PO 10/08/17 09:00 10/08/17 08:26 Potassium Chloride 20 meq/ Dextrose/Sodium Chloride 1,010 ml @ 84 mls/hr Q12H2M IV 10/08/17 09:00 10/08/17 23:20 (Vasotec Inj) 1.25 mg Q4H PRN IV PUSH 10/08/17 08:15 Ceftriaxone Sodium 1000 mg/ Sodium Chloride 100 ml @ 200 mls/hr Q24H IV 10/08/17 18:00 10/08/17 18:21 (Lopressor) 25 mg Q12HR PO 10/08/17 21:00 A/P Assessment and Plan // Atrial fibrillation with rapid ventricular response EKG significant for atrial fibrillation with rapid ventricular response, pulse 117, no ST segment elevations or depressions, personally reviewed given Diltiazem drip now on Beta blockers, status post Cardiology consult gave recommendations and signed off the case, on Apixaban. //UTI on Ceftriaxone //Patient confusion, what appears to be dysarthria this morning. 10/08 = Neurology feels that dysarthria is simply from dry mouth, and this could be the case, however patient is confused. CT head no acute findings. No other focal findings Delirium/agitation was on restraints today for this reason not discharge, at the time of evaluation patient improved. //Urinary retention. On 10/08. Postvoid residual 999 mL. Unable to pass catheter. Urology placed Myers cath okay to discharge with Myers and follow as outpatient. //COPD stable no exacerbation Ipratropium Continue home inhalers //Chronic pain Continue home Percocet and morphine = 10/07. Patient somnolent, lightheaded. Low blood pressure. Family reports the patient takes only one fourth of his sustained release morphine (not supposed to split these tablets), has been getting prescribed dose here. Discontinue all narcotics. = Continue to hold all narcotics. // Hypothyroidism Continue home Synthroid -TSH 8.9, however would recommend rechecking this in several weeks she outpatient setting. DVT prophylaxis with Apixaban Discharge Planning Expected by tomorrow. Onur Perdue MD Oct 09, 2017 09:30
[2017-10-09] MEDS: DIGOXIN 0.125 MG TAB PO SCH (10:00)
[2017-10-09] MEDS: METOPROLOL TARTRATE 25 MG TAB PO SCH ×2 (10:01→20:57)
[2017-10-09] MEDS: clonazePAM 0.5 MG TAB PO SCH ×3 (10:01→18:00)
[2017-10-09] MEDS: APIXABAN 5 MG TABLET PO SCH ×2 (10:01→20:57)
[2017-10-09] MEDS: POTASSIUM CHLORIDE INJ 20 MEQ in DEXT 5%-NACL 0.9% 1000 ML INJ 1,000 ML IV SCH ×2 (13:30→21:06)
[2017-10-09] MEDS: cefTRIAXone INJ 1,000 MG in SODIUM CHLORIDE 0.9% INJ 100 ML IV SCH (18:00)
[2017-10-10] VITALS (12 sets, daily range): BP systolic 112–169; BP diastolic 59–74; PULSE 56–100; RESP 16–20; TEMP 97.6–99.8; O2SAT 94–100
[2017-10-10] MEDS: RESP: IPRATROPIUM 0.5 MG/2.5 ML NEB NEB SCH ×4 (03:00→21:27)
[2017-10-10] MEDS: CHLORHEXIDINE GLUCONATE 2 % 1 PACK (2 CLOTHS)(taper/protocol) TOPICAL SCH (03:42)
[2017-10-10] MEDS: LEVOTHYROXINE SODIUM 75 MCG TAB PO SCH (05:26)
[2017-10-10] MEDS: POTASSIUM CHLORIDE INJ 20 MEQ in DEXT 5%-NACL 0.9% 1000 ML INJ 1,000 ML IV SCH (05:26)
[2017-10-10] MEDS: LEVOTHYROXINE SODIUM 100 MCG TAB PO SCH (05:26)
[2017-10-10] MEDS: TIOTROPIUM BROMIDE 18 MCG INH INH SCH (09:00)
[2017-10-10] MEDS: APIXABAN 5 MG TABLET PO SCH ×2 (09:01→20:42)
[2017-10-10] MEDS: METOPROLOL TARTRATE 25 MG TAB PO SCH ×2 (09:01→20:42)
[2017-10-10] MEDS: clonazePAM 0.5 MG TAB PO SCH ×2 (09:01→14:19)
[2017-10-10] MEDS: DIGOXIN 0.125 MG TAB PO SCH (09:01)
[2017-10-10] MEDS: SODIUM CHLORIDE 0.9% FLUSH 10 ML FLUSH IV FLUSH SCH ×2 (09:01→20:43)
[2017-10-10] MEDS: BUDESONIDE-FORMOTEROL 160/4.5 MCG INHALER INH SCH ×2 (09:05→20:43)
[2017-10-10] MEDS: CIPROFLOXACIN 250 MG TAB PO SCH ×2 (11:23→20:42)
--- NOTE | 2017-10-10 11:45 | HHI.PR ---
Subjective Remarks Follow up confusion, UTI and A. fib. Patient has no complaints. He is oriented 3 reports he came in because he lost his balance. Discussed with nursing, continues to have intermittent confusion Objective Vitals Vital Signs Date Time Temp Pulse Resp B/P (MAP) Pulse Ox O2 Delivery O2 Flow Rate FiO2 10/10/17 10:22 96 10/10/17 09:33 94 Nasal Cannula 2.00 10/10/17 08:00 Nasal Cannula 2.00 10/10/17 08:00 72 10/10/17 08:00 98.6 59 16 115/59 (77) 97 10/10/17 04:00 Room Air 10/10/17 04:00 Room Air 10/10/17 04:00 99.1 72 18 115/74 (88) 99 10/10/17 03:47 84 10/10/17 00:00 Room Air 10/10/17 00:00 99.8 70 20 112/70 (84) 98 10/09/17 23:42 63 10/09/17 21:06 Nasal Cannula 2.00 10/09/17 20:00 98.6 63 16 113/57 (75) 99 10/09/17 20:00 Room Air 10/09/17 19:00 99.4 73 18 110/55 (73) 97 10/09/17 18:00 90 10/09/17 17:00 85 10/09/17 16:00 101 10/09/17 16:00 97.6 101 22 117/62 (80) 10/09/17 15:00 91 10/09/17 14:00 74 10/09/17 13:00 85 10/09/17 12:00 99.0 81 18 128/58 (81) 100 10/09/17 12:00 81 I/O 10/09/17 10/09/17 10/09/17 10/10/17 10/10/17 10/10/17 07:00 15:00 23:00 07:00 15:00 23:00 Intake Total 1010 ml 1010 ml 700 ml 1084 ml Output Total 750 ml 750 ml 500 ml Balance 260 ml 1010 ml -50 ml 584 ml Intake Oral 700 ml IV Total 1010 ml 1010 ml 1084 ml Output Urine Total 750 ml 750 ml 500 ml Stool Total 0 ml Result Diagram: 10/09/17 0408 10/09/17 0408 Imaging Last Impressions Head CT 10/08/17 0000 Signed Impressions: Service Date/Time: Sunday, October 08, 2017 10:28 - CONCLUSION: No acute disease. Abran Mccain MD Chest X-Ray 10/05/17 1545 Signed Impressions: Service Date/Time: Thursday, October 05, 2017 16:32 - CONCLUSION: 1. Mild diffuse interstitial prominence of unknown chronicity given lack of prior exams. 2. Otherwise, no acute abnormality. Daniel Holliday MD Objective Remarks GENERAL: Patient sitting up in bed. WD WN in no distress SKIN: Warm and dry. CARDIOVASCULAR: Heart rate in 90s again. Irregularly irregular rhythm without murmurs, gallops, or rubs. RESPIRATORY: Breath sounds equal bilaterally. No accessory muscle use. GASTROINTESTINAL: Abdomen soft, non-tender, nondistended. MUSCULOSKELETAL: No cyanosis, or edema. BACK: Nontender without obvious deformity. No CVA tenderness. Neuro: Awake and alert oriented 3. He has slight dysarthria Procedures none Urinary Catheter: Yes Assessment to: Continue Myers insert reason: Obstruction/Retention Date of Insertion: Oct 08, 2017 A/P Problem List: (1) Urinary retention due to benign prostatic hyperplasia ICD Code: N40.1 - Benign prostatic hyperplasia with lower urinary tract symptoms; R33.8 - Other retention of urine Assessment and Plan Atrial fibrillation with rapid ventricular response. Stable status post Cardizem drip continue beta-kayce and apixaban E. coli UTI. Switch to p.o. ciprofloxacin Encephalopathy likely secondary to above. Head CT without acute diabetes. EEG unremarkable. Obtain MRI. Continue neuro checks. Consult speech therapy for cognitive cognitive and swallowing evaluation Urinary retention. On 10/08. Postvoid residual 999 mL. Unable to pass catheter. Urology placed Myers cath okay to discharge with Myers and follow as outpatient. COPD stable no exacerbation Chronic pain. Patient denies pain. We will provide Percocet as needed. Continue to hold morphine because of ongoing encephalopathy. Hypothyroidism. Continue home Synthroid TSH 8.9, however would recommend rechecking this in several weeks in the outpatient setting. Hyperglycemia on D5. We will continue to monitor DVT prophylaxis with Apixaban Discharge Planning [facility] vs rehab Jason Caldwell MD Oct 10, 2017 11:45
[2017-10-10] MEDS ORDERED: PILL SPLITTER OTHER PRN (12:00)
[2017-10-10] MEDS ORDERED: oxyCODONE/ACETAMINOPHEN 5 MG/325 MG TAB PO PRN ×2 (12:00)
[2017-10-10 12:48] LABS: HEMOGLOBIN A1C 5.4 % (4.3-6.0)
[2017-10-10] MEDS ORDERED: DIGO0.12 PO (15:50)
[2017-10-10] MEDS ORDERED: CIPR250T52 PO (15:50)
[2017-10-10] MEDS ORDERED: METO25TA3 PO (15:50)
--- NOTE | 2017-10-10 15:51 | HHI.DCPOC ---
Discharge Care Plan Diagnosis: (1) Urinary retention due to benign prostatic hyperplasia Your Health Problems Are: Difficulty with ADL Exercise Tolerance Goals to Promote Your Health * To prevent worsening of your condition and complications * To maintain your health at the optimal level Directions to Meet Your Goals Take your medications as prescribed Follow your dietary instruction Follow activity as directed Keep your appointments as scheduled Take your immunizations and boosters as scheduled If your symptoms worsen call your PCP, if no PCP go to Urgent Care Center or Emergency Room Smoking is Dangerous to Your Health. Avoid second hand smoke Call the 24-hour hour crisis hotline for domestic abuse at Jason Caldwell MD Oct 10, 2017 15:51
[2017-10-10] MEDS ORDERED: clonazePAM 0.5 MG TAB PO PRN (16:30)
[2017-10-10] MEDS: REMOVE OLD PATCH T-DERMAL SCH (16:30)
[2017-10-10] MEDS: NICOTINE 21 MG/24 HR PATCH T-DERMAL SCH (17:23)
--- NOTE | 2017-10-10 17:52 | RADRPT ---
EXAM DATE/TIME: 10/10/2017 16:19 [place] COMPARISON: CT BRAIN W/O CONTRAST, October 08, 2017, 10:28. INDICATIONS : Confusion. CVA. MEDICAL HISTORY : Chronic obstructive pulmonary disease. Arthritis. Hyperthyroidism. SURGICAL HISTORY : Tonsillectomy. ORIF femur. ENCOUNTER: Initial ACUITY: 1 day PAIN SCORE: 0/10 LOCATION: cranial TECHNIQUE: Multiplanar, multisequence MRI of the brain was performed without contrast. FINDINGS: CEREBRUM: The ventricles are normal for age. No evidence of midline shift, mass lesion, hemorrhage or acute in farction. No extraaxial fluid collections are seen. The pituitary gland and suprasellar cistern are normal in configuration. WHITE MATTER: Minimal age appropriate periventricular and deep white matter microvascular ischemic demyelinization. POSTERIOR FOSSA: The cerebellum and brainstem are intact. The 4th ventricle is midline. The cerebellopontine angle is unremarkable. The cerebellar tonsils are normal in position. DIFFUSION IMAGING: No focal areas of restricted diffusion are seen. No evidence of acute infarction. EXTRACRANIAL: The visualized portions of the orbits and paranasal sinuses are unremarkable. CONCLUSION: Normal examination for a patient of this age. Nikita Cruz MD on October 10, 2017 at 17:48 Board Certified Radiologist. This report was verified electronically.
[2017-10-11] VITALS (7 sets, daily range): BP systolic 121–155; BP diastolic 55–98; PULSE 60–107; RESP 18–20; TEMP 97.5–98.5; O2SAT 97–100
[2017-10-11] MEDS: RESP: IPRATROPIUM 0.5 MG/2.5 ML NEB NEB SCH ×3 (03:44→15:53)
[2017-10-11] MEDS: LEVOTHYROXINE SODIUM 100 MCG TAB PO SCH (06:44)
[2017-10-11] MEDS: LEVOTHYROXINE SODIUM 75 MCG TAB PO SCH (06:44)
[2017-10-11] MEDS: TIOTROPIUM BROMIDE 18 MCG INH INH SCH (09:00)
[2017-10-11] MEDS: CIPROFLOXACIN 250 MG TAB PO SCH (09:20)
[2017-10-11] MEDS: DIGOXIN 0.125 MG TAB PO SCH (09:20)
[2017-10-11] MEDS: METOPROLOL TARTRATE 25 MG TAB PO SCH (09:20)
[2017-10-11] MEDS: NICOTINE 21 MG/24 HR PATCH T-DERMAL SCH (09:21)
[2017-10-11] MEDS: APIXABAN 5 MG TABLET PO SCH (09:21)
[2017-10-11] MEDS: SODIUM CHLORIDE 0.9% FLUSH 10 ML FLUSH IV FLUSH SCH (09:21)
[2017-10-11] MEDS: BUDESONIDE-FORMOTEROL 160/4.5 MCG INHALER INH SCH (09:21)
[2017-10-11] MEDS: REMOVE OLD PATCH T-DERMAL SCH (09:22)
[2017-10-11] MEDS ORDERED: OXYGENDME NAS.CANULA (11:01)
--- NOTE | 2017-10-11 13:37 | HHI.DS ---
Discharge Summary Admission Date Oct 05, 2017 at 17:28 Discharge Date: Oct 11, 2017 Admitting Diagnosis Onset A. fib, A. fib with RVR, elevated troponin (1) Urinary retention due to benign prostatic hyperplasia ICD Code: N40.1 - Benign prostatic hyperplasia with lower urinary tract symptoms; R33.8 - Other retention of urine Diagnosis: Principal Procedures none Brief History - From Admission 72-year-old male with a past medical history significant for chronic left lower extremity pain secondary to trauma, COPD and hypothyroidism presents to the emergency department complaining of balance problems and lightheadedness since . The patient denies any chest pain or palpitations. Denies shortness of breath. Denies fever/chills. He went to the [facility] for evaluation where an EKG was performed and he was sent to the [place] emergency department. He was found to be in atrial fibrillation with RVR. The patient has no previous history of A. fib. CBC/BMP: 10/09/17 0408 10/09/17 0408 Significant Findings Laboratory Tests Test 10/08/17 17:48 10/08/17 20:03 10/09/17 04:08 Blood Gas Hemoglobin 11.7 G/DL (12.0-16.0) Direct Bilirubin 0.4 MG/DL (0.0-0.2) Aspartate Amino Transf (AST/SGOT) 12 U/L (15-37) Alanine Aminotransferase (ALT/SGPT) 9 U/L (12-78) Ammonia LESS THAN 10 MCMOL/L B-Type Natriuretic Peptide 501 PG/ML (0-100) Total Protein 6.2 GM/DL (6.4-8.2) Albumin 2.8 GM/DL (3.4-5.0) 2.5 GM/DL (3.4-5.0) Red Blood Count 3.72 MIL/MM3 (4.50-5.90) Hemoglobin 11.9 GM/DL (13.0-17.0) Hematocrit 35.5 % (39.0-51.0) Neutrophils (%) (Auto) 84.7 % (16.0-70.0) Lymphocytes (%) (Auto) 5.6 % (9.0-44.0) Monocytes (%) (Auto) 8.8 % (0.0-8.0) Lymphocytes # (Auto) 0.4 TH/MM3 (1.0-4.8) Blood Urea Nitrogen 20 MG/DL (7-18) Random Glucose 142 MG/DL (74-106) Calcium Level 8.3 MG/DL (8.5-10.1) Phosphorus Level 2.2 MG/DL (2.5-4.9) Chloride Level 108 MEQ/L (98-107) Estimat Glomerular Filtration Rate 61 ML/MIN (>89) Imaging Last Impressions Brain MRI 10/10/17 0000 Signed Impressions: Service Date/Time: Tuesday, October 10, 2017 16:19 - CONCLUSION: Normal examination for a patient of this age. Nikita Cruz MD Head CT 10/08/17 0000 Signed Impressions: Service Date/Time: Sunday, October 08, 2017 10:28 - CONCLUSION: No acute disease. Abran Mccain MD Chest X-Ray 10/05/17 1545 Signed Impressions: Service Date/Time: Thursday, October 05, 2017 16:32 - CONCLUSION: 1. Mild diffuse interstitial prominence of unknown chronicity given lack of prior exams. 2. Otherwise, no acute abnormality. Daniel Holliday MD PE at Discharge GENERAL: Patient sitting up in bed. WD WN in no distress on NC SKIN: Warm and dry. CARDIOVASCULAR: Heart rate in 90s again. Irregularly irregular rhythm without murmurs, gallops, or rubs. RESPIRATORY: Breath sounds equal bilaterally. No accessory muscle use. GASTROINTESTINAL: Abdomen soft, non-tender, nondistended. MUSCULOSKELETAL: No cyanosis, or edema. BACK: Nontender without obvious deformity. No CVA tenderness. Neuro: Awake and alert oriented 3. He has slight dysarthria Hospital Course Atrial fibrillation with rapid ventricular response. Stable status post Cardizem drip continue beta-kayce and apixaban E. coli UTI. Switch to p.o. ciprofloxacin Encephalopathy likely metabolic secondary to above. Head CT and MRI without acute findings. EEG unremarkable. Improving he could be baseline Continue neuro checks. Speech therapy for cognitive cognitive Urinary retention. On 10/08. Postvoid residual 999 mL. Unable to pass catheter. Urology placed Myers cath okay to discharge with Myers and follow as outpatient. COPD ith hypoxia stable no exacerbation . Ct oxygen Chronic pain. Patient denies pain. We will provide Percocet as needed. Continue to hold morphine because of encephalopathy. Hypothyroidism. Continue home Synthroid TSH 8.9, however would recommend rechecking this in several weeks in the outpatient setting. Hyperglycemia on D5. A1c 5.4 DVT prophylaxis with Apixaban Pt Condition on Discharge: Stable Discharge Disposition: Disch w/ Home Health Serv Discharge Time: > 30 minutes Discharge Instructions DIET: Follow Instructions for: Heart Healthy Diet Activities you can perform: Regular-No Restrictions Activities to Avoid: Driving Follow up Referrals: Cardiology - 1 Week PCP Follow-up - 1 Week with [facility] P[facility] Follow-up with APPT Speech Therapy Urology - 1 Week New Medications: Ipratropium HFA 12.9 GM Inh (Atrovent HFA 12.9 GM Inh) 17 Mcg/Actuation Aer 2 PUFF INH Q6HR PRN for SHORTNESS OF BREATH, #1 INHALER 0 Refills Oxygen (O2) (Oxygen (O2)) Device LITER ABAD.CANULA CONTINUOUS for Prevent Hypoxemia, #2 Oxygen Concentrator Portable Gaseous 2 L/min via Nasal Canula Continuous For 99 months Apixaban (Eliquis) 5 Mg Tab 5 MG PO BID for Blood Clot Prevention for 30 Days, #60 TAB Ciprofloxacin (Cipro) 250 Mg Tab 250 MG PO Q12HR for Infection, #18 TAB Digoxin (Digoxin) 0.125 Mg Tab 0.125 MG PO DAILY for Regulate Heart Beat, #30 TAB Diltiazem CD 24 HR (Diltiazem CD 24 HR) 240 Mg Caper 240 MG PO DAILY for heart for 30 Days, #30 CAP Metoprolol Tartrate (Metoprolol Tartrate) 25 Mg Tab 25 MG PO Q12HR for Regulate Heart Beat, #60 TAB Continued Medications: Albuterol 18 GM Inh (Ventolin Hfa 18 GM Inh) 90 Mcg/Act Aer 2 PUFF INH Q6H PRN for SHORTNESS OF BREATH, #1 INHALER 0 Refills Budesonide-Formoterol Inh (Symbicort Inh) 160-4.5 Mcg/Act Aero 2 PUFF INH Q12HR, #1 INHALER 0 Refills Clonazepam (Klonopin) 0.5 Mg Tab 0.5 MG PO TID, #90 TAB 0 Refills Guaifenesin (Guaifenesin) 400 Mg Tab 400 MG PO BID PRN for THIN MUCOUS Levothyroxine (Levothyroxine) 175 Mcg Tab 175 MCG PO DAILY for Thyroid, #30 TAB 0 Refills Oxycodone-Acetaminophen (Percocet) 5-325 mg Tab 2 TAB PO Q6H PRN for BREAKTHROUGH PAIN, TAB 0 Refills Ranitidine (Zantac) 150 Mg Tab 150 MG PO DAILY for Reduce Stomach Acid, #30 TAB 0 Refills Tiotropium Inh (Spiriva Handihaler) 18 Mcg Cap 18 MCG INH DAILY for COPD, #30 CAP 0 Refills 1 capsule = 18 mcg Discontinued Medications: Morphine ER (Morphine ER) 60 Mg Tab 60 MG PO BID for Pain Management, TAB 0 Refills Jason Caldwell MD Oct 11, 2017 13:37
== END 2017-10-11 17:23 | disposition home health service (06) | DRG 308 ==
LOC: NEPE 15:22 → NEDA 17:28 → HIMW 19:04 → N04A 10-09 18:56
PROVIDERS: ADMIT Internal Medicine; ATTEND Internal Medicine
PROC: 0T9B70Z Drainage of Bladder with Drainage Device, Via Natural or Artificial Opening (ICD-10-PCS; principal; 2017-10-08)
PROC: 0T7D7ZZ Dilation of Urethra, Via Natural or Artificial Opening (ICD-10-PCS; 2017-10-08)
DX: I48.91 Unspecified atrial fibrillation (principal); G93.41 Metabolic encephalopathy; I24.8 Other forms of acute ischemic heart disease; N39.0 Urinary tract infection, site not specified; N13.8 Other obstructive and reflux uropathy; J44.9 Chronic obstructive pulmonary disease, unspecified; E03.9 Hypothyroidism, unspecified; M19.90 Unspecified osteoarthritis, unspecified site; E87.6 Hypokalemia; N40.1 Benign prostatic hyperplasia with lower urinary tract symptoms; R33.8 Other retention of urine; I95.2 Hypotension due to drugs; N35.9 Urethral stricture, unspecified; R73.9 Hyperglycemia, unspecified; R09.02 Hypoxemia; N39.490 Overflow incontinence; M79.605 Pain in left leg; G89.29 Other chronic pain; H91.93 Unspecified hearing loss, bilateral; B96.20 Unspecified Escherichia coli [E. coli] as the cause of diseases classified elsewhere; T40.605A Adverse effect of unspecified narcotics, initial encounter; F17.210 Nicotine dependence, cigarettes, uncomplicated; Z78.1 Physical restraint status
CPT/HCPCS: 36600; 70450; 70551; 71046; 80048; 80069; 80076; 81001; 82140; 82550; 82805; 83036; 83735; 83880; 84443; 84484; 85025; 85027; 85610; 85730; 87077; 87086; 87186; 87641; 93005; 94640; 94664; 95819; J0696; J1160; J1644; J2250; J2930; J3480; J7042; J7613; J7644